=== PATIENT | female | born 1970 | race Caucasian/White ===

== ENCOUNTER 2023-08-17 10:05 | Outpatient (OUT) | payer BC, SELFPAY ==
--- NOTE | 2023-08-17 10:18 | MM_ITS ---
Patient: WEN CHANG Exam Date: 08/17/2023 : 1970 Gender:F Ordering : DR KELLI VILLA M.D. Admission #: [id number] Family : Order #: [id number] CLICK HERE TO VIEW EXAM RADIOLOGY REPORT PROCEDURE: MM TOMOSYNTHESIS SCREENING BI COMPARISON: MG MAMM DIAGNOSTIC 3D ELIU CAD, 05/23/2022. MG MAMM SCREEN 3D ELIU CAD, 05/14/2021. MG MAMM SCREEN ELIU W CAD, 11/07/2019. MG MAMM SCREEN ELIU W CAD, 03/04/2018. INDICATIONS: Screening Calculator Name NCI Breast Cancer Risk Assessment Tool 5 Year Breast Cancer Risk 4.10% Lifetime Breast Cancer Risk 28.10% Personal Breast Cancer No Personal Ovarian Cancer No Treatments None Family Cancers Mother with breast cancer at age ~50; Sister with breast cancer at age ~40; Sister with breast cancer at age ~40; Mother with lung cancer at age 61; Father with pancreas cancer at age 74; Brother with pancreas cancer at age 39; Grandfather-paternal with lung cancer at age 80; Aunt-maternal with lung cancer at age 70. LOCATION: [facility] BREAST COMPOSITION: Heterogeneously dense,which may obscure small masses. FINDINGS: DIAGNOSTIC CATEGORY 2--BENIGN FINDING: RIGHT BREAST: No significant suspicious finding. Stable right upper outer quadrant benign-appearing calcifications. No significant change has occurred. LEFT BREAST: No significant suspicious finding. No significant change has occurred. RECOMMENDATIONS: ROUTINE MAMMOGRAM AND CLINICAL EVALUATION IN 12 MONTHS. PLEASE NOTE: A NORMAL MAMMOGRAM DOES NOT EXCLUDE THE POSSIBILITY OF BREAST CANCER. A CLINICALLY SUSPICIOUS PALPABLE LUMP SHOULD BE BIOPSIED. Dictated by: Darvin Humphrey M.D. on 08/28/2023 at 14:36 Approved by: Darvin Humphrey M.D. on 08/28/2023 at 14:43
== END 2023-08-17 10:06 | disposition home or self-care (01) ==
DX: Z12.31 Encounter for screening mammogram for malignant neoplasm of breast (principal); Z80.3 Family history of malignant neoplasm of breast; Z80.1 Family history of malignant neoplasm of trachea, bronchus and lung; Z80.8 Family history of malignant neoplasm of other organs or systems
CPT/HCPCS: 77063; 77067

== ENCOUNTER 2023-09-17 19:17 | Outpatient (REF) | payer BC, SELFPAY ==
[2023-09-23 14:10] LABS: Age Gdln ACOG Testing Note (.); HPV Aptima Negative (Negative); IGP, Aptima HPV, rfx 16/18,45 Note (.)
== END 2023-09-17 19:18 | disposition home or self-care (01) ==
LOC: LAB 19:17
PROVIDERS: Visit Provider Physician Assistant
DX: Z01.419 Encounter for gynecological examination (general) (routine) without abnormal findings (principal)
CPT/HCPCS: 87624; G0145

== ENCOUNTER 2024-09-22 19:20 | Outpatient (REF) | payer BC, SELFPAY ==
--- OUTSIDE RECORDS SUMMARY | 2024-09-22 19:24 | XMS_ITS | CCD ---
Author Organization [facility] Care Team Providers Care Pipelines Supervisor Name Role Phone JOS EMARTIN HERZOG Admitting Unavailable JOSE MARTIN HERZOG Attending Unavailable JOSE MARTIN HERZOG Admitting Unavailable ROSENDA, JOSE MARTIN Attending Unavailable FRANCES GIORDANO Primary Care Unavailable DR DARVIN HUMPHREY Consulting Unavailable JOSE MARTIN HERZOG Consulting Unavailable NICHOLE MENDEZ Admitting Unavailable ANDREA, NICHOLE Attending Unavailable FRANCES GIORDANO Primary Care Unavailable ANDREA, NICHOLE Consulting Unavailable АЛЕКСАНДР HONG Attending Unavailable Problems Problem Classification Problem Date Documented Da te Episodic/Chronic Headache; including migraine (3 sources) Headache; including migraine; Translations: [HEADACHE UNSPECIFIED] Onset: 07-19-2021 Other lower respiratory disease (1 source) Cough; Translations: [COUGH] Onset: 08-04-2021 Episodic Other screening for suspected conditions (not mental disorders or infectious disease) (4 sources) Encounter for screening mammogram for malignant neoplasm of breast; Translations: [ENC SCR MAMMO MALIG NEOPLASM BREAST] Onset: 05-14-2021 Episodic Residual codes; unclassified (1 source) Family history of malignant neoplasm of breast; Translations: [FAMILY HX MALIG NEOPLASM OF BREAST] Onset: 05-23-2021 Episodic Residual codes; unclassified (1 source) Family history of malignant neoplasm of trachea, bronchus and lung; Translations: [FAM HX MALIG NEOPLSM TRACH BRON LNG] Onset: 05-23-2021 Episodic Residual codes; unclassified (1 source) Family history of malignant neoplasm of other organs or systems; Translations: [FAM HX MALIG NEOPLASM OTH ORGN/SYS] Onset: 05-23-2021 Episodic Unclassified (1 source) CONTACT W/AND (SUSP) EXPOS COVID-19; Translations: [CONTACT W/AND (SUSP) EXPOS COVID-19] Onset: 08-04-2021 Results Test Name Value Interpretation Reference Range Facil ity SCREENING MAMMOGRAM W/EDITH, BILATERAL*on 05-23-2022 SCREENING MAMMOGRAM W/EDITH, BILATERAL* COMPARISON: May 14, 2021 TECHNIQUE: 2D and 3D Tomosynthesis of the right and left breasts was performed. FINDINGS: Breast composition demonstrates scattered fibroglandular densities. Overall appearance is stable. Typically benign calcifications. No suspicious microcalcifications, asymmetry, architectural distortion, or associated features are present. IMPRESSION: BIRADS 2: Benign mammogram Board Certified Radiologist. Accredited by the ACR and FDA. MAMMOGRAPHY IS VERY IMPORTANT TO YOUR HEALTH. THE CURRENT [place] [employer] GUIDELINES RECOMMENDS ANNUAL MAMMOGRAPHY BEGINNING AT AGE 40 THIS FACILITY USES A REMINDER SYSTEM TO ENSURE ALL PATIENTS RECEIVE REMINDER NOTIFICATIONS AT THE APPROPRIATE TIME BASED ON THE RECOMMENDATIONS OF THIS EXAM. Report reported and signed by Vipul Todd on 05/29/2022 1430 Normal [facility] [employer] LIPID PANEL, STANDARDon 05-02 Cholesterol [Mass/Vol] 216 mg/dL High <200 [facility] Comment on above: Order Comment: FASTI NG: NO Performed By: #### 7 600 #### [facility] [address], [address] [place], [place] [id number] Slot Supervisor: Aly Rocha MD Cholesterol in HDL [Mass/Vol] 47 mg/dL Low > OR = 50 [facility] Comment on above: Order Comment: FASTI NG: NO Performed By: #### 7 600 #### [facility] [address], [address] [place] [id number] Slot Supervisor: Aly Rocha MD Cholesterol in LDL [Mass/Vol] 138 mg/dL High [facility] Comment on above: Order Comment: FASTI NG: NO Result Comment: Refe rence range: <100 Desirable range <100 mg/dL for primary prevention; <70 mg/dL for patients with CHD or diabetic patients with > or = 2 CHD risk factors. LDL-C is now calculated using the Lefty calculation, which is a validated novel method providing better accuracy than the Friedewald equation in the estimation of LDL-C. Pablito PONCE et al. JOSEPHINE. 2013;310(19): 7067-2898 (http://education.[employer]/faq/WCJ721) Performed By: #### 7 600 #### [facility] [address], [address] [place] [address] Slot Supervisor: Aly Rocha MD Cholesterol.total/ Cholesterol in HDL [Mass ratio] 4.6 {ratio} Normal <5.0 [facility] Comment on above: Order Comment: FASTI NG: NO Performed By: #### 7 600 #### [facility] [address], [address] [place] [address] Slot Supervisor: Aly Rocha MD NON HDL CHOLESTEROL 169 mg/dL (calc) High <130 [facility] Comment on above: Order Comment: FASTI NG: NO Result Comment: For patients with diabetes plus 1 major ASCVD risk factor, treating to a non-HDL-C goal of <100 mg/dL (LDL-C of <70 mg/dL) is considered a therapeutic option. Performed By: #### 7 600 #### [facility] [address], [address] [place] [address] Slot Supervisor: Aly Rocha MD Triglyceride [Mass/Vol] 178 mg/dL High <150 [facility] Comment on above: Order Comment: FASTI NG: NO Performed By: #### 7 600 #### [facility] [address], [address] [place] [address] Slot Supervisor: Aly Rocha MD XR Shoulder Complete Left*on 12-17-2021 XR Shoulder Complete Left* FINDINGS: A bulbous subacromial process is present. Minimal osteophyte formation involves the AC joint. No fracture or dislocation or rotator cuff calcification is seen. Upper chest is clear. IMPRESSION: 1. Minimal arthritis, no AC separation or fracture. 2. Mild upper thoracic levoscoliosis. Report reported and signed by Vipul Todd on 12/17/2021 1436 Normal [facility] Covid-19 PCR (CVDTBH)on 07-03 SARS-CoV-2 (COVID-19) RNA FAUSTO+probe Ql (Unsp spec) Not detected Normal NOT DETECTED [facility] Comment on above: Result Comment: This test is not yet approved or cleared by the [place] FDA. When there are no FDA-approved or cleared tests available, and other criteria are met, FDA can make tests available under an emergency access mechanism called an Emergency Use Authorization (EUA). The EUA for this test is supported by the [place] of Health and Human Service's (HHS's) declaration that circumstances exist to justify the emergency use of in vitro diagnostics for the detection and/or diagnosis of the virus that causes COVID-19. This EUA will remain in effect (meaning this test can be used) for the duration of the COVID-19 declaration justifying emergency of IVDs, unless it is terminated or revoked by FDA (after which the test may no longer be used). When diagnostic testing is negative, the possibility of a false negative should be considered in the context of a patient's recent exposures and the presence of clinical signs and symptoms consistent with SARS-CoV-2. Performed By: #### C VDTB #### [facility] [address] [place] [address] Dr. Brian Coronel MG MAMM SCREEN 3D ELIU CADon 05-14-2021 MG MAMM SCREEN 3D ELIU CAD Patient: WEN CHANG Exam Date: 05/14/2021 : 1970 Gender:F Ordering : DR. JOSE MARTIN HERZOG . Admission #: [id number] Family : Order #: [id number] CLICK HERE TO VIEW EXAM RADIOLOGY REPORT PROCEDURE: MAMMOGRAM SCREENING 3D BILATERAL CAD COMPARISON: MG MAMM SCREEN ELIU W CAD, 11/07/2019. MG MAMM SCREEN ELIU W CAD, 03/04/2018. INDICATIONS: Screening mammography Calculator Name NCI Breast Cancer Risk Assessment Tool 5 Year Breast Cancer Risk 3.80% Lifetime Breast Cancer Risk 28.90% Personal Breast Cancer No Personal Ovarian Cancer No Treatments None Family Cancers Mother with breast cancer at age 50; Sister with breast cancer at age 40; Sister with breast cancer at age 40; Mother with lung cancer at age 61; Father with pancreas cancer at age 74; Brother with pancreas cancer at age 39; Grandfather-paternal with lung cancer at age 80; Aunt-maternal with lung cancer at age 70. LOCATION: [facility] BREAST COMPOSITION: Heterogeneously dense,which may obscure small masses. FINDINGS: DIAGNOSTIC CATEGORY 1--NEGATIVE ASSESSMENT. RIGHT BREAST: No significant suspicious finding. No significant change has occurred. LEFT BREAST: No significant suspicious finding. No significant change has occurred. RECOMMENDATIONS: ROUTINE MAMMOGRAM AND CLINICAL EVALUATION IN 12 MONTHS. PLEASE NOTE: A NORMAL MAMMOGRAM DOES NOT EXCLUDE THE POSSIBILITY OF BREAST CANCER. A CLINICALLY SUSPICIOUS PALPABLE LUMP SHOULD BE BIOPSIED. Dictated by: Darvin Humphrey M.D. on 05/14/2021 at 15:22 Approved by: Darvin Humphrey M.D. on 05/14/2021 at 15:26 Normal [facility] Encounters Encounter Date Encounter Type Care Provider Facility Start: 09-17-2023 End: 09-17-2023 ambulatory АЛЕКСАНДР HONG Not Available Start: 07-19-2021 End: 07-19-2021 ambulatory NICHOLE BENITEZAGUSTIN Facility:[facility] Start: 05-14-2021 End: 05-15-2021 ambulatory JOSE MARTIN HERZOG Facility:[facility] Start: 12-31-2020 ambulatory JOSE MARTIN HERZOG Facility:[facility] Payers Date Payer Category Payer Unknown [id number] 1970 Unknown [id number] 1970 Unknown [id number] 1970 Unknown [id number] 1970 Unknown [id number] 1960 Self-pay [id number] 1960 Unknown [id number] Summary Purpose Family History No Family History Records FoundNo Family History Records FoundNo Family History Records FoundNo Family History Records Found Advance Directives No Advanced Directives Records FoundNo Advanced Directives Records FoundNo Advanced Directives Records FoundNo Advanced Directives Records Found Additional Source Comments INFORMATION SOURCE (unrecogn ized section and content) DATE CREATED AUTHOR 08/04/2021 [facility] DATE CREATED AUTHOR AUTHOR'S ORGANIZ ATION 05/13/2022 [facility] DATE CREATED AUTHOR AUTHOR'S ORGANIZ ATION 06/02/2022 [facility] DATE CREATED AUTHOR AUTHOR'S ORGANIZ ATION 09/19/2023 [facility] EPIC FOR RECORDS PERTAINING TO PATIENTS WHO ARE OR HAVE BEEN ENROLLED IN A CHEMICAL DEPENDENCY/SUBSTANCEABUSE PROGRAM, SOME INFORMATION MAY BE OMITTED. This clinical summary was aggregated from multiple sources. Caution should be exercised in using it in the provision of clinical care. This summary normalizes information from multiple sources, and as a consequence, information in this document may materially change the coding, format and clinical context of patient data. In addition, data may be omitted in some cases. CLINICAL DECISIONS SHOULD BE BASED ON THE PRIMARY CLINICAL RECORDS. [facility] [employer] [facility]. provides no warranty or guarantee of the accuracy or completeness of information in this document.
== END 2024-09-22 19:21 | disposition home or self-care (01) ==
LOC: LAB 19:20
PROVIDERS: Visit Provider Physician Assistant
DX: Z01.419 Encounter for gynecological examination (general) (routine) without abnormal findings (principal)
CPT/HCPCS: 87624; 88175

== ENCOUNTER 2025-03-06 10:06 | Outpatient (OUT) | payer BC, SELFPAY ==
--- NOTE | 2025-03-06 10:13 | MM_ITS ---
Patient Name: WEN CHANG MR#: [id number] : 1970 Exam Date: 03/06/2025 Ordering Doctor: NILAY HONG . RADIOLOGY REPORT PROCEDURE: MM TOMOSYNTHESIS SCREENING BI COMPARISON: MM TOMOSYNTHESIS SCREENING BI, 08/17/2023. MG MAMM DIAGNOSTIC 3D ELIU CAD, 05/23/2022. MG MAMM SCREEN 3D ELIU CAD, 05/14/2021. MG MAMM SCREEN ELIU W CAD, 03/24/2011. INDICATIONS: Screening Calculator Name NCI Breast Cancer Risk Assessment Tool 5 Year Breast Cancer Risk 4.40% Lifetime Breast Cancer Risk 27.20% Personal Breast Cancer No Personal Ovarian Cancer No Treatments None Family Cancers Mother with breast cancer at age ~50; Sister with breast cancer at age ~40; Sister with breast cancer at age ~40; Mother with lung cancer at age 61; Father with pancreas cancer at age 74; Brother with pancreas cancer at age 39; Grandfather-paternal with lung cancer at age 80; Aunt-maternal with lung cancer at age 70. LOCATION: [facility] BREAST COMPOSITION: There are scattered areas of fibroglandular density. FINDINGS: DIAGNOSTIC CATEGORY 1--NEGATIVE. RIGHT BREAST: No significant suspicious finding. LEFT BREAST: No significant suspicious finding. RECOMMENDATIONS: ROUTINE MAMMOGRAM AND CLINICAL EVALUATION IN 12 MONTHS. PLEASE NOTE: A NORMAL MAMMOGRAM DOES NOT EXCLUDE THE POSSIBILITY OF BREAST CANCER. A CLINICALLY SUSPICIOUS PALPABLE LUMP SHOULD BE BIOPSIED. Dictated by: Vipul Payan DO on 03/06/2025 at 16:33 Approved by: Vipul Payan DO on 03/06/2025 at 16:40
--- NOTE | 2025-03-06 10:14 | US_ITS ---
The [address] [address] Patient Name: WEN CHANG MRN: [id number] date: 1970 Sex: F Assigned Patient Location: US Current Patient Location: [place] Accession/Order Number: [id number] Exam Date: 03/06/2025 12:54 Report Date: 03/06/2025 12:56 At the request of: АЛЕКСАНДР HONG Procedure: US pelvis w/ transvaginal Pelvic ultrasound. Reason for exam: History of fibroid. Comparison: none Technique: Transabdominal imaging of the uterus and ovaries was performed. Transvaginal imaging of the uterus and ovaries was also obtained. Additional spectral Doppler analysis of the ovaries was also obtained. Findings: Uterus measures 11.2 x 4.2 x 7.9 cm. The uterus appears heterogenous in echotexture with a echogenic fibroid seen involving the mid uterus measuring 2.5 x 1.7 x 0.9 cm. Endometrium is not clearly seen. No free fluid. Right ovary not visualized. Left ovary measures 2.0 x 2.0 x 2.0 cm without mass. Normal arterial and venous Doppler waveforms of the left ovary. US/US pelvis w/ transvaginal Impression: Partially calcified fibroid uterus. Endometrium and right ovary not visualized. Left ovary appears unremarkable. Impression dictated by: Vipul Payan Jr., D.O. 03/06/2025 12:56 PM Dictation Location: [place] [address] Electronically authenticated by: [id number] Y Date: 03/06/2025 12:56
== END 2025-03-06 10:07 | disposition home or self-care (01) ==
LOC: US 10:07
PROVIDERS: Visit Provider Physician Assistant
DX: Z12.31 Encounter for screening mammogram for malignant neoplasm of breast (principal); Z86.018 Personal history of other benign neoplasm; Z80.3 Family history of malignant neoplasm of breast; Z80.1 Family history of malignant neoplasm of trachea, bronchus and lung; Z80.8 Family history of malignant neoplasm of other organs or systems; D25.9 Leiomyoma of uterus, unspecified
CPT/HCPCS: 76830; 76856; 77063; 77067

== ENCOUNTER 2025-10-05 19:04 | Outpatient (REF) | payer BC, SELFPAY ==
--- OUTSIDE RECORDS SUMMARY | 2025-10-05 19:09 | XMS_ITS | CCD ---
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 Name Role Phone JOSE MARTIN HERZOG Admitting Unavailable JOSE MARTIN HERZOG Attending Unavailable JOSE MARTIN HERZOG Admitting Unavailable JOSE MARTIN HERZOG Attending Unavailable FRANCES GIORDANO Primary Care Unavailable DR KAYLEE HUMPHREY Consulting Unavailable JOSE MARTIN HERZOG Consulting Unavailable NICHOLE WAITE Admitting Unavailable NICHOLE WAITE Attending Unavailable FRANCES GIORDANO Primary Care Unavailable ANDREA, NICHOLE Consulting Unavailable Isiah GRAY, Rosanne Neil Primary Care Provider Ranjit SANTANA, Lyndsay Serrano Unavailable [place] [employer]OP[employer]OFT ADMINISTRATOR-VOICE STUDIES DIRECTORRob Unavailable [phone] Forrest DONAHUE-Frances ROMO Primary Care P mahesh LILIAM WOODWARD Attending Unavailable FRANCES KAY Referring Unavail able FRANCES KAY Primary Care Unavail able CARLOS WHITFIELD Admitting Unavailable CARLOS WHITFIELD Attending Unavailable FRANCES KAY Primary Care Unavail able JAMES PERERA Referring Unavailable MAJORSJAMES Primary Care Unavailable MAJORSJAMES Referring Unavailable MAJORSJAMES Primary Care Unavailable Scooby SANTANA, Lyndsay Serrano Unavailable James Perera NP Unavailable JAMES PERERA Attending Unavailable JAMES PERERA Referring Unavailable RADHA HONG Attending Unavailable NICHOLE WAITE Attending Unavailab ROB Owen Attending Unavailable JAMES PERERA Attending Unavailable Allergies Allergy ClassificationReported Allergen(s)Allergy TypeDate of OnsetReaction(s) Facility (20 sources)Latex; Translations: [LATEX]Allergy to lmecpxdmh30-24-6678Mdlf[facility] Work Phone: (1 source)LatexPropensity to adverse reactions to nvgl30-16-3872EdqkRurSmqgto [facility] Medications Current Medications MedicationDrug Class(es)DatesSig (Normalized)Sig (Original)200 actuat albuterol 0.09 mg/actuat dry powder inhaler (1 source)beta2-Adrenergic AgonistStart: 77-72-5340cjeacxing sulfate (PROAIR RESPICLICK) 90 mcg/actuation aerosol powdr breath activated Indications: Mild intermittent reactive airway disease without complication Inhale 180 mcg every 4 (four) hours. 1 each 3 06/08/2019 Activeatorvastatin 20 mg oral tablet (12 sources)HMG-CoA Reductase InhibitorStart: 10-07-2024 End: 91-66-2958krlf 1 tablet by mouth once dailyatorvastatin (Lipitor) 20 MG tablet Indications: Mixed hyperlipidemia Take 1 tablet (20 mg) by mouth Daily 100 tablet 3 10/07/2024 10/07/2025 Activeblood pressure monitor kit (1 source)Start: 05-14-2019 End: 97-16-5248tieue pressure monitor kit Indications: Elevated blood pressure reading 1 kit by miscellaneous route daily. 1 each 05/14/2019 11/28/2024 Discontinued (Therapy completed)cyclobenzaprine hydrochloride 10 mg oral tablet (2 sources)Muscle RelaxantStart: 44-66-9134sdxk 0.5-1 tablets by mouth once daily at bedtimecyclobenzaprine (Flexeril) 10 MG tablet TAKE 1/2 TO 1 TABLET BY MOUTH EVERY NIGHT AT BEDTIME DIRECTED 08/24/2025 Activeergocalciferol 1.25 mg oral capsule (11 sources)Provitamin D2 CompoundStart: 11-26-2020 End: 46-99-7087mexq 1 capsule by mouth every weekergocalciferol (DRISDOL) 1,250 mcg (50,000 unit) capsule Take 1 capsule by mouth once a week. 11/26/2020 11/28/2024 Discontinued (Therapy completed) End: 91-73-6249niqt 1 capsule by mouth every weekergocalciferol (Vitamin D-2) 1.25 MG (26290 UT) capsule Take 1.25 mg by mouth 1 (one) time per week11/03/2025 Discontinuedfluocinonide 0.0005 mg/mg topical ointment (4 sources)CorticosteroidStart: 50-36-2872fkrnzmhnqeqg (Lidex) 0.05 % ointment Indications: Other atopic dermatitis Apply to affected areas on hands, up to twice a day when flared, do not use one the face, groin, or underarms, 30 day supply 15 g 11 08/17/2025 Activelevothyroxine sodium 0.112 mg oral tablet (20 sources)l-ThyroxineStart: 03-29-2023 End: 86-31-9235zgnn 1 tablet by mouth before mealtimelevothyroxine (Synthroid, Levoxyl) 112 MCG tablet Indications: Acquired hypothyroidism Take 1 tablet (112 mcg) by mouth in the morning. Take before meals. 100 tablet 3 10/07/2024 11/11/2025 ActiveStart: 17-68-1967mmpg 1 tablet by mouth once dailylevothyroxine (SYNTHROID, LEVOTHROID) 25 MCG tablet Indications: Acquired hypothyroidism Take 1 tablet (25 mcg total) by mouth daily. 30 tablet 1 06/08/2019 Active End: 13-63-7293wrmy 1 tablet by mouth before mealtimelevothyroxine (Synthroid, Levoxyl) 125 MCG tablet Take 125 mcg by mouth in the morning. Take beforemeals. 09/22/2024 Discontinued (Other)lisinopril 10 mg oral tablet (20 sources)Angiotensin Converting Enzyme InhibitorStart: 78-57-7148fqfu 1 tablet by mouth once dailylisinopril 10 MG tablet Indications: Essential hypertension Take 1 tablet (10 mg) by mouth Daily 90tablet 1 05/17/2025 Active Start: 02-11-2021 End: 67-40-8939edrz 1 tablet by mouth once dailylisinopril 10 MG tablet Indications: Essential hypertension (CMS/HCC) Take 1 tablet (10 mg) by mouth Daily 90 tablet 1 10/07/2024 Activemeclizine hydrochloride 25 mg oral tablet (2 sources)AntiemeticStart: 09-06-2025 End: 84-85-3536wfra 1 tablet by mouth three times daily as needed for dizziness meclizine (Antivert) 25 MG tablet Indications: Dizziness Take 1 tablet (25 mg) by mouth 3 (three) times a day as needed for dizziness for up to 10 days 30 tablet 09/06/2025 09/16/2025 ActiveMultiple Vitamin (Multi Vitamin) tablet (20 sources)Multiple Vitamin (Multi Vitamin) tablet 1 (one) time each day at the same time. ActiveMULTIVITAMIN ORAL (1 source)MULTIVITAMIN ORAL Take by mouth. Activesod sulf-pot chloride-mag sulf 1.479-0.188- 0.225 gram tablet (1 source)Start: 05-92-1057vph sulf-pot chloride-mag sulf 1.479-0.188- 0.225 gram tablet Indications: Encounter for colonoscopy due to history of colonic polyp Please see instructional sheet given by physicians office. 24 tablet 11/28/2024 Activetriamcinolone acetonide 0.25 mg/ml topical cream (20 sources)Corticosteroidtriamcinolone (Kenalog) 0.025 % cream Apply 1 application topically 1 (one) time each day at the same time. PRN Activevitamin b12 1 mg oral tablet (1 source)Vitamin D99Mbznr: 02-15-2021 End: 48-78-5105sefw 1 tablet by mouth in the morningcyanocobalamin 1000 MCG tablet Take 1 tablet (1,000 mcg total) by mouth in the morning. 02/15/2021 0 11/28/2024 Discontinued (Therapy completed) Completed/Discontinued Medications MedicationDrug Class(es)DatesSig (Normalized)Sig (Original)oxaprozin 600 mg oral tablet (2 sources)Nonsteroidal Anti-inflammatory DrugStart: 08-28-2025 End: 44-47-7523qwan 0.5 tablet by mouth three times daily as needed for pain oxaprozin (Daypro) 600 MG tablet TAKE 1/2 TABLET BY MOUTH 3 TIMES A DAY NEEDED FOR PAIN 08/28/2025 09/06/2025 Discontinued Problems Active Problems Problem ClassificationProblemDateDocumented DateEpisodic/ChronicAllergic reactions (1 source)Atopic dermatitis; Translations: [Other atopic dermatitis]08-17-2025 ChronicAsthma (20 sources)Reactive airway disease; Translations: [Unspecified asthma, uncomplicated]Onset: 840234-70-5591LvrabpxExoafe; other and unspecified primary (2 sources)History of gynecological disorder; Translations: [Personal history of other benign neoplasm]28-73-1708PldooediFskhfkw dysrhythmias (7 sources)Palpitations; Translations: [Palpitations]Onset: EpisodicConditions associated with dizziness or vertigo (2 sources)Dizziness; Translations: [Dizziness and giddiness]45-85-1965Hljauyyi Disorders of lipid metabolism (20 sources)Mixed hyperlipidemia; Translations: [Mixed hyperlipidemia]Onset: 770702-00-3012LqwbtimZgzhqelky hypertension (20 sources)Essential hypertension; Translations: [Essential (primary) hypertension]Onset: 249996-77-8793ZvryhknDtyxdupp (1 source)Raised intraocular pressure; Translations: [Ocular hypertension, unspecified eye]01-22-5537XqxhnfuEwutyqpd; including migraine (3 sources)Headache; including migraine; Translations: [HEADACHE UNSPECIFIED] Onset: 91-59-4018Kkwxjjagr of unspecified nature or uncertain behavior (3 sources)Neoplastic disease; Translations: [Neoplasm of unspecified behavior of bone, soft tissue, and skin]56-10-9590JexkqshiCpdecltyryf chest pain (5 sources)Tight chest; Translations: [Other chest pain]Onset: 06-29-2025 92-77-1674YdovnxeqQefjmgivofbadk (20 sources)Localized, primary osteoarthritis of the ankle and/or foot; Translations: [Primary osteoarthritis, unspecified ankle and foot]Onset: 434816-16-2971JjbhyxfSquxk acquired deformities (20 sources)Contracture of joint of right ankle; Translations: [Contracture, right ankle]Onset: 869591-81-5411JhjsoppMoqop and unspecified benign neoplasm (3 sources)Melanocytic nevus of right lower limb; Translations: [Melanocytic nevi of right lower limb, including hip]57-87-2995ZiejqwdnPqmmt and unspecified benign neoplasm (3 sources)Melanocytic nevus of left lower limb; Translations: [Melanocytic nevi of left lower limb, includinghip]61-84-6124WuqoylasBqhpz and unspecified benign neoplasm (3 sources)Melanocytic nevus of trunk; Translations: [Melanocytic nevi of trunk] 46-64-8394YzcgemyrWcfat and unspecified benign neoplasm (3 sources)Skin lesion; Translations: [Hemangioma of skin and subcutaneous tissue]98-39-3261YcjdhxpeYpuhn and unspecified benign neoplasm (3 sources)Dermatofibroma; Translations: [Other benign neoplasm of skin, unspecified]50-01-2537CildkecaBhfpc lower respiratory disease (1 source)Cough; Translations: [COUGH]Onset: 16-49-8811MgnubxfnOkdht nervous system disorders (20 sources)Chronic pain; Translations: [Other chronic pain]Onset: 02-17-2022 84-91-7322MbgerntJxrvv nutritional; endocrine; and metabolic disorders (20 sources)Obese class I; Translations: [Class 1 obesity]Onset: 02-14-2021 13-71-5384CdzwvvqOtmuk nutritional; endocrine; and metabolic disorders (1 source)Obesity; Translations: [Obesity, unspecified]94-49-4667SkankrpRgwox skin disorders (3 sources)Lentiginosis; Translations: [Other melanin hyperpigmentation] 10-08-2055HzwxhceeJytic skin disorders (3 sources)Seborrheic keratosis; Translations: [Other seborrheic keratosis] 99-09-5405XphszpquEprmj skin disorders (1 source)Sebaceous gland hypertrophy; Translations: [Other specified follicular disorders]09-15-9913TyjysrciCsdvd skin disorders (1 source)Skin tag; Translations: [Other hypertrophic disorders of the skin] 14-74-6095HaifbokqHbjaffiq codes; unclassified (1 source)Family history of malignant neoplasm of breast; Translations: [FAMILY HX MALIG NEOPLASM OF BREAST]Onset: 53-91-5549VhcibceaVntoshrt codes; unclassified (1 source)Family history of malignant neoplasm of trachea, bronchus and lung; Translations: [FAM HX MALIG NEOPLSM TRACH BRON LNG]Onset: 13-82-4623Vlitxisw Residual codes; unclassified (1 source)Family history of malignant neoplasm of other organs or systems; Translations: [FAM HX MALIG NEOPLASM OTH ORGN/SYS]Onset: 72-73-9690Ilzwawsa Thyroid disorders (20 sources)Acquired hypothyroidism; Translations: [Hypothyroidism, unspecified] Onset: 595291-96-3668ZulrppxBcpukbtcntjg (1 source)CONTACT W/AND (SUSP) EXPOS COVID-19; Translations: [CONTACT W/AND (SUSP) EXPOS COVID-19]Onset: 92-79-7209Fvwzbnmjsmak (2 sources)Personal history of colon polyps, unspecified; Translations: [Personal history of colon polyps, unspecified]Onset: 64-86-3812Fppuskgzfdmy (1 source)Colon Cancer ScreeningOnset: 93-24-8757Hxfzkvbrsevu (1 source)history of colonpolypsOnset: 12-16-2024 Past or Other Problems Problem ClassificationProblemDateDocumented DateEpisodic/ChronicCancer; other and unspecified primary (20 sources)H/O: skin disorder; Translations: [Personal history of other benign neoplasm]Onset: 493401-95-0668IbvukbdsUsyonpaq mellitus without complication (20 sources)Hyperglycemia; Translations: [Impaired fasting glucose]Onset: 702196-14-9830XxusoinqKibl disorders (1 source)Mood disordersOnset: Other circulatory disease (20 sources)Elevated blood pressure; Translations: [Elevated blood-pressure reading, without diagnosis of hypertension]Onset: 309675-12-7074Oroaridk Other connective tissue disease (20 sources)Calcaneal spur of right foot; Translations: [Calcaneal spur, right foot]Onset: 114636-70-8019UxonioayMoynn connective tissue disease (20 sources)Plantar fascial fibromatosis; Translations: [Plantar fascial fibromatosis]Onset: 274560-93-6757QwgdiltfJqxhv screening for suspected conditions (not mental disorders or infectious disease) (20 sources)Encounter for screening mammogram for malignant neoplasm of breast; Translations: [Decreased vitamin B12 level]Onset: 00-88-4265QivohottNaptnxmmonoy (1 source)Onset: Results Test NameValueInterpretationReference RangeFacilityLesion biopsyon 08-17-2025 Type of biopsy: tangential Informed consent: discussed and consent obtained Informed consent comment: The risks and benefits of the biopsy were discussed. Risks include but are not limited to bleeding, infection, scarring, pain, and nerve damage. An opportunity to ask questions prior to the procedure was permitted and all questions were answered. Patient was prepped and draped in usual sterile fashion: area cleansed with alcohol. Anesthesia: the lesion was anesthetized in a standard fashion Anesthetic: 1% lidocaine w/ epinephrine 1-100,000 buffered w/ 8.4% NaHCO3 Instrument used: DermaBlade Hemostasis achieved with: electrodesiccation Outcome: patient tolerated procedure well Outcome comment: The specimen was placed in a prelabeled formalin container to be sent for pathology Post-procedure details: sterile dressing applied and wound care instructions given Post-procedure details comment: Emphasized need to contact clinic for any signs of infection, uncontrollable bleeding, or complications. Dressing type: bandage Additional details: Photo taken Am[facility] of lidocaine [facility]: [facility].0 [facility] 2 VIEWSon 63-77-9376DC CHEST 2 VIEWSChest 2 views. HISTORY: Chest pain. Chest tightness. FINDINGS: Osseous structures intact. Cardiopericardial silhouette normal. Pulmonary vasculature normal. Lungsclear. IMPRESSION: No acute cardiopulmonary disease. ELECTRONICALLY SIGNED BY: Leatha DudleyNot AvailableMM TOMOSYNTHESIS SCREENING BIon 85-22-4234[place] [address] Mammography Report Signed Patient: WEN MURILLO MR#: [id number] : 1970 Acct:[id number] Age/Sex: 54 / F ADM Date: 03/06/25 Loc: US Attending Dr: Radha Hong Ordering Physician: Radha Hong Results: Date of Service: 03/06/25 Follow Up: Procedure(s): MM tomosynthesis screening BI Accession Number(s): [id number] cc: Radha Hong; Physician,Non-Staff M.D. Patient Name: WEN MURILLO MR#: [id number] : 1970 Exam Date: 03/06/2025 Ordering Doctor: NILAY HONG . RADIOLOGY REPORT PROCEDURE: MM TOMOSYNTHESIS SCREENING BI COMPARISON: MM TOMOSYNTHESIS SCREENING BI, 08/17/2023. MG MAMM DIAGNOSTIC 3D ELIU CAD, 05/23/2022. MG MAMM SCREEN 3D ELIU CAD, 05/14/2021. MG MAMM SCREEN ELIU W CAD, 03/24/2011. INDICATIONS: Screening Calculator Name NCI Breast Cancer Risk Assessment Tool 5 Year Breast Cancer Risk 4.40% Lifetime Breast Cancer Risk 27.20% Personal Breast Cancer No Personal Ovarian Cancer [...] lung cancer at age 69. LOCATION: [facility] BREAST COMPOSITION: There are scattered areas of fibroglandular density. FINDINGS: DIAGNOSTIC CATEGORY 1--NEGATIVE. RIGHT BREAST: No significant suspicious finding. LEFT BREAST: No significant suspicious finding. RECOMMENDATIONS: ROUTINE MAMMOGRAM AND CLINICAL EVALUATION IN 12 MONTHS. PLEASE NOTE: A NORMAL MAMMOGRAM DOES NOT EXCLUDE THE POSSIBILITY OF BREAST CANCER. A CLINICALLY SUSPICIOUS PALPABLE LUMP SHOULD BE BIOPSIED. Dictated by: Vipul Payan DO on 03/06/2025 at 16:33 Approved by: Vipul Payan DO on 03/06/2025 at 16:40 Dictated By: Vipul Payan M.D. Signed By: 03/06/25 1641 DD/ 1640 TD/TT: Enterostomal Therapy Nurse:TBHRadiology, Radiologist, - 03/06/2025 [place] [address] Mammography Report Signed Patient: WEN MURILLO MR#: [id number] : 1970 Acct:[id number] Age/Sex: 54 / F ADM Date: 03/06/25 Loc: US Attending Dr: Radha Hong Ordering Physician: Radha Hong Results: Date of Service: 03/06/25 Follow Up: Procedure(s): MM tomosynthesis screening BI Accession Number(s): [id number] cc: Radha Hong; Physician,Non-Staff M.DBunny Patient Name: WEN MURILLO MR#: [id number] : 1970 Exam Date: 03/06/2025 Ordering Doctor: NILAY HONG . RADIOLOGY REPORT PROCEDURE: MM TOMOSYNTHESIS SCREENING BI COMPARISON: MM TOMOSYNTHESIS SCREENING BI, 08/17/2023. MG MAMM DIAGNOSTIC 3D ELIU CAD, 05/23/2022. MG MAMM SCREEN 3D ELIU CAD, 05/14/2021. MG MAMM SCREEN ELIU W CAD, 03/24/2011. INDICATIONS: Screening Calculator Name NCI Breast Cancer Risk Assessment Tool 5 Year Breast Cancer Risk 4.40% Lifetime Breast Cancer Risk 27.20% Personal Breast Cancer No Personal Ovarian Cancer [...] lung cancer at age 69. LOCATION: [facility] BREAST COMPOSITION: There are scattered areas of fibroglandular density. FINDINGS: DIAGNOSTIC CATEGORY 1--NEGATIVE. RIGHT BREAST: No significant suspicious finding. LEFT BREAST: No significant suspicious finding. RECOMMENDATIONS: ROUTINE MAMMOGRAM AND CLINICAL EVALUATION IN 12 MONTHS. PLEASE NOTE: A NORMAL MAMMOGRAM DOES NOT EXCLUDE THE POSSIBILITY OF BREAST CANCER. A CLINICALLY SUSPICIOUS PALPABLE LUMP SHOULD BE BIOPSIED. Dictated by: Vipul Payan DO on 03/06/2025 at 16:33 Approved by: Vipul Payan DO on 03/06/2025 at 16:40 Dictated By: Vipul Payan M.D. Signed By: 03/06/25 1641 DD/ 1640 TD/TT: Enterostomal Therapy Nurse: [place] HealthcareRadiology Study observation (narrative)[facility] TOMOSYNTHESIS SCREENING BIOrdered By: Radiologist Radiology on 71-17-2474WMHR [employer] Work Phone: us PELVIS W/ TRANSVAGINALon 18-85-6014Tas [place] [address] Ultrasound Report Signed Patient: WEN MURILLO MR#: [id number] : 1970 Acct:[id number] Age/Sex: 54 / F ADM Date: 03/06/25 Loc: US Attending Dr: Radha Hong Ordering Physician: Radha Hong Date of Service: 03/06/25 Procedure(s): US pelvis w/ transvaginal Accession Number(s): [id number] cc: Radha Hong; Physician,Non-Staff [facility] [address] [address] Patient Name: WEN MURILLO MRN: [facility]:[id number] date: 1970 Sex: F Assigned Patient Location: US Current Patient Location: US Accession/Order Number: [id number] Exam Date: 03/06/2025 12:54 Report Date: 03/06/2025 12:56 At the request of: RADHA HONG Procedure: US pelvis w/ transvaginal Pelvic ultrasound. Reason for exam: History of fibroid. Comparison: none Technique: Transabdominal imaging of the uterus and ovaries was performed. Transvaginal imaging of the uterus and ovaries was also obtained. Additional spectral Doppler analysis of the ovaries was also obtained. Findings: Uterus measures 11.2 x 4.2 x 7.9 cm. The uterus appears heterogenous in echotexture with a echogenic fibroid seen involving the mid uterus measuring 2.5 x 1.7 x 0.9 cm. Endometrium is not clearly seen. No free fluid. Right ovary not visualized. Left ovary measures 2.0 x 2.0 x 2.0 cm without mass. Normal arterial and venous Doppler waveforms of the left ovary. US/US pelvis w/ transvaginal Impression: Partially calcified fibroid uterus. Endometrium and right ovary not visualized. Left ovary appears unremarkable. Impression dictated by: Vipul Payan Jr., D.O. 03/06/2025 12:56 PM Dictation Location: [place] [address] Electronically authenticated by: [id number] Y Date: 03/06/2025 12:56 Dictated By: Vipul Payan M.D. Signed By: 03/06/25 1258 DD/ 1256 TD/TT: Enterostomal Therapy Nurse:JULISAadiology, Radiologist, - 03/06/2025 The [place] [id number] Ultrasound Report Signed Patient: WEN MURILLO MR#: [id number] : 1970 Acct:[id number] Age/Sex: 54 / F ADM Date: 03/06/25 Loc: US Attending Dr: Radha Hong Ordering Physician: Radha Hong Date of Service: 03/06/25 Procedure(s): US pelvis w/ transvaginal Accession Number(s): [id number] cc: Radha Hong; Physician,Non-Staff M.D. [place] [address] Patient Name: WEN MURILLO MRN: [facility]:[id number] date: 1970 Sex: F Assigned Patient Location: US Current Patient Location: US Accession/Order Number: [id number] Exam Date: 03/06/2025 12:54 Report Date: 03/06/2025 12:56 At the request of: RADHA HONG Procedure: US pelvis w/ transvaginal Pelvic ultrasound. Reason for exam: History of fibroid. Comparison: none Technique: Transabdominal imaging of the uterus and ovaries was performed. Transvaginal imaging of the uterus and ovaries was also obtained. Additional spectral Doppler analysis of the ovaries was also obtained. Findings: Uterus measures 11.2 x 4.2 x 7.9 cm. The uterus appears heterogenous in echotexture with a echogenic fibroid seen involving the mid uterus measuring 2.5 x 1.7 x 0.9 cm. Endometrium is not clearly seen. No free fluid. Right ovary not visualized. Left ovary measures 2.0 x 2.0 x 2.0 cm without mass. Normal arterial and venous Doppler waveforms of the left ovary. US/US pelvis w/ transvaginal Impression: Partially calcified fibroid uterus. Endometrium and right ovary not visualized. Left ovary appears unremarkable. Impression dictated by: Vipul Payan Jr., D.O. 03/06/2025 12:56 PM Dictation Location: [place] [address] Electronically authenticated by: [id number] Y Date: 03/06/2025 12:56 Dictated By: Vipul Payan M.D. Signed By: 03/06/25 1258 DD/ 1256 TD/TT: Enterostomal Therapy Nurse: [facility]ITALMarika HealthcareRadiology Study observation (narrative)NOMMarika HealthcareUS PELVIS W/ TRANSVAGINALOrdered By: Radiologist Radiology on 11-00-7030VMWX Healthcare Work Phone: IGP,APTIMA HPV,AGE GDLNon 15-46-2945VPT GDLN ACOG TESTINGNote.[facility] HealthcareComment on above:TESTS RESULT FLAG UNITS REF RANGE LAB Clinician Provided Cytology Information Source.............Cervix;Endocervix No. of containers..01 ThinPrep Vial Age Algo ACOG Christine... 30-65 01 FLAG LEGEND: L-Low Normal,H-High Normal,LL-Alert Low,HH-Alert High <-Panic Low,>-Panic High,A-Abnormal,AA-Critical Abnormal Performed at: 01 =G [address] [address] Ashlie Sparrow MD, HPV APTIMANegativeNegativeJORDAN VALLEY MEDICAL CENTER HealthcareComment on above:This nucleic acid amplification test detects fourteen high- risk HPV types (16,18,31,33,35,39,45,51,52,56,58,59,66,68) without differentiation. Performed at: =G [address] [id number] Manager Agency: Ashlie Sparrow MD, Phone: [phone] Performed at: - [facility], [place] [id number] Manager Agency: Ashlie Sparrow MD, Phone: [phone] IGP, APTIMA HPV, RFX 16/18,45Note.[facility]OMS HealthcareComment on above:TESTS RESULT FLAG UNITS REF RANGE LAB DIAGNOSIS: 02 NEGATIVE FOR INTRAEPITHELIAL LESION OR MALIGNANCY. Specimen adequacy: 02 Satisfactory for evaluation. No endocervical component is identified. Performed by: Star Pfeiffer, Fence Installer (ASC) . 02 Note: Note 02 The Pap smear is a screening test designed to aid in the detection of premalignant and malignant conditions of the uterine cervix. It is not a diagnostic procedure and should not be used as the sole means of detecting cervical cancer. Both false-positive and false-negative reports do occur. Test Methodology: Note 02 This liquid based ThinPrep(R) pap test was screened with the use of an image guided system. HPV Genotype Reflex Note 02 Criteria not met, HPV Genotype not performed. FLAG LEGEND: L-Low Normal,H-High Normal,LL-Alert Low,HH-Alert High <-Panic Low,>-Panic High,A-Abnormal,AA-Critical Abnormal Performed at: [address] [facility] [address] [place] [address] Ashlie Sparrow MD, BRUSH-SPATULA CERVIX ENDOCERVIX [facility] Panel Informationon 04-90-6547Rgtz of biopsy: tangential Informed consent: discussed and consent obtained Informed consent comment: The risks and benefits of the biopsy were discussed. Risks include but are not limited to bleeding, infection, scarring, pain, and nerve damage. An opportunity to ask questions prior to the procedure was permitted and all questions were answered. Patient was prepped and draped in usual sterile fashion: area cleansed with alcohol. Anesthesia: the lesion was anesthetized in a standard fashion Anesthetic: 1% lidocaine w/ epinephrine 1-100,000 buffered w/ 8.4% NaHCO3 Instrument used: DermaBlade Hemostasis achieved with: electrodesiccation Outcome: patient tolerated procedure well Outcome comment: The specimen was placed in a prelabeled formalin container to be sent for pathology Post-procedure details: sterile dressing applied and wound care instructions given Post-procedure details comment: Emphasized need to contact clinic for any signs of infection, uncontrollable bleeding, or complications. Dressing type: bandage Additional details: Photo taken yes Amount of lidocaine used: 0.5 [facility]ENING MAMMO[facility] W/EDITH, BILATERAL*on 72-29-9103QGYDDQFPU MAMMOGRAM W/EDITH, BILATERAL* COMPARISON: May 14, 2021 [...] VERY IMPORTANT TO YOUR HEALTH. THE CURRENT [employer] GUIDELINES RECOMMENDS ANNUAL MAMMOGRAPHY BEGINNING AT AGE 40 THIS FACILITY USES A REMINDER SYSTEM TO ENSURE ALL PATIENTS RECEIVE REMINDER NOTIFICATIONS AT THE APPROPRIATE TIME BASED ON THE RECOMMENDATIONS OF THIS EXAM. Report reported and signed by Vipul Todd on 05/29/2022 1430NormalNorthern Virginia Medical SpecialistLIPID PANEL, STANDARDon 61-20-1109Aeamlznxnlb [Mass/Vol] 216 mg/dLHigh<200Quest DiagnosticsComment on above:Order Comment: FASTING: NO Performed By: #### [id number] #### [facility] [address], [address] [place] [address] Sales Agent Casualty Insurance: Aly BABCOCKholesterol in HDL [Mass/Vol]47 mg/dLLow> OR = 50Quest DiagnosticsComment on above:Order Comment: FASTING: NOPerformed By: #### 7600 #### [facility] [address], [address] [place] [address] Sales Agent Casualty Insurance: Aly Rocha MDCholesterol in LDL [Mass/Vol]138 mg/dLHigh [facility] DiagnosticsComment on above:Order Comment: FASTING: NOResult Comment: Reference range: <100 Desirable range <100 mg/dL for primary prevention; <70 mg/dL for patients with CHD or diabetic patients with > or = 2 CHD risk factors. LDL-C is now calculated using the Lefty calculation, which is a validated novel method providing better accuracy than the Friedewald equation in the estimation of LDL-C. Pablito SS et al. JOSEPHINE. 2013;310(19): 3911-4039 (http://education.[employer].HelpingDoc/faq/BYE562)Performed By: #### 7600 #### [facility] [address], [address] [place] [address] Sales Agent Casualty Insurance: Aly Coronel.total/Cholesterol in HDL [Mass ratio]4.6 {ratio}Normal<5.0Quest DiagnosticsComment on above:Order Comment: FASTING: NOPerformed By: #### 7600 #### [facility] [address], [address] [place] [address] Sales Agent Casualty Insurance: Aly BELCHER HDL [id number] mg/dL (calc)High<130 Quest DiagnosticsComment on above:Order Comment: FASTING: NOResult Comment: For patients with diabetes plus 1 major ASCVD risk factor, treating to a non-HDL-C goal of <100 mg/dL (LDL-C of <70 mg/dL) is considered a therapeutic option.Performed By: #### 7600 #### [facility] [address], [address] [place] [address] Sales Agent Casualty Insurance: Aly Merati MDTriglyceride [Mass/Vol]178 mg/dLHigh<150Quest DiagnosticsComment on above:Order Comment: FASTING: NOPerformed By: #### 7600 #### [facility] [address] [place] [address] Rd, [address] [place] [address] Sales Agent Casualty Insurance: Aly Rocha MDXR Shoulder Complete Left*on [phone] Shoulder Complete Left*FINDINGS: A bulbous subacromial process is present. Minimal osteophyte formation involves the AC joint. No fracture or dislocation or rotator cuff calcification is seen. Upper chest is clear. IMPRESSION: 1. Minimal arthritis, no AC separation or fracture. 2. Mild upper thoracic levoscoliosis. Report reported and signed by Vipul Todd on 12/17/2021 1436NormalNorthern Saint Francis Hospital & Medical CenterCovid-19 PCR (CVDTB)on 40-21-7472TZMY-CoV-2 (COVID-19) RNA FAUSTO+probe Ql (Unsp spec)Not detectedNormalNOT DETECTEDThe [facility] Comment on above:Result Comment: This test is not yet approved or cleared by the [place] FDA. When there are no FDA-approved or cleared tests available, and other criteria are met, FDA can make tests available under an emergency access mechanism called an Emergency Use Authorization (EUA). The EUA for this test is supported by the [place] of Health and Human Service's (HHS's) declaration that circumstances exist to justify the emergency use of in vitro diagnostics for the detection and/or diagnosis of the virus that causes COVID- 19. This EUA will remain in effect (meaning [...] of clinical signs and symptoms consistent with SARS-CoV-2.Performed By: #### CVDTBH #### [facility] [address] [address] [address] Brian CoronelMG MAMM SCREEN 3D ELIU CADon 70-58-3677UL MAMM SCREEN 3D ELIU CAD Patient: WEN MURILLO Exam Date: 05/14/2021 : 1970 Gender:F Ordering : DR. JOSE MARTIN HERZOG . Admission #: [id number] Family : Order #: [id number] CLICK HERE TO VIEW EXAM RADIOLOGY REPORT [...] lung cancer at age 69. LOCATION: [facility] BREAST COMPOSITION: Heterogeneously dense,which may obscure [...] PALPABLE LUMP SHOULD BE BIOPSIED. Dictated by: Kaylee Humphrey M.D. on 05/14/2021 at 15:22 Approved by: Kaylee Humphrey M.D. on 05/14/2021 at 15:26[facility] Vital Signs Date TimeVital SignValuePerforming FzlmsannzJtitwsnr82-99-0284 15:09-0500 Diastolic blood cxorxvhb63 mm[Hg]James Perera MANAGER AGENCY Work Phone: ePARHermann Area District HospitalXasfngwnzk79-83-7101 15:09-0500Heart rate94 /min James Perera MANAGER AGENCY Work Phone: ePARHermann Area District HospitalGevwxqrnwl30-91-5676 15:09-3585ZeI9% (BldA) [Mass fraction]97 %James Perera MANAGER AGENCY Work Phone: [facility] HospitalEzgdghrxag48-68-8351 15:09-0500Systolic blood scuycuei071 mm[Hg]James Majors MANAGER AGENCY Work Phone: [phone] HospitalAyzxbkdcog15-45-2299 14:39-0500Body mass index (BMI) [Ratio]33.16 kg/d3Nmohup Majors MANAGER AGENCY Work Phone: [facility] HospitalWwcxpntetw43-38-1457 14:39-0500Body temperature 97.59 [degF]James Majors MANAGER AGENCY Work Phone: [phone] [place], [place] [address]Pdppncnjst22-58-1725 14:39-0500Body .33 kgBreann Majors MANAGER AGENCY Work Phone: [phone] HospitalNoufhbbgiq85-27-9858 14:00-0400Body mass index (BMI) [Ratio]32.75 kg/o3Teheju Majors MANAGER AGENCY Work Phone: [phone] HospitalKniyxhmmyy23-05-4132 14:00-0400Body temperature 97.2 [degF]James Majors MANAGER AGENCY Work Phone: [phone] [place], [place] [address]Ctwfxtpuir99-48-0087 14:00-0400Body zlmlow550.06 kgBrealton Majors MANAGER AGENCY Work Phone: [phone] HospitalKewmqjpniz08-86-3477 14:00-0400Diastolic blood qsmiiopl96 mm[Hg]James Majors MANAGER AGENCY Work Phone: [phone] [address]Liualhwahl86-56-3544 14:00-0400Heart rate86 /min James Majors MANAGER AGENCY Work Phone: [phone] [place], [place] [address]Mvgwyiqylp33-54-6314 14:00-1700IqE1% (BldA) [Mass fraction]97 %James Majors MANAGER AGENCY Work Phone: [phone] HospitalYtroxuksjh77-36-1970 14:00-0400Systolic blood oxdvdigm785 mm[Hg]James Majors MANAGER AGENCY Work Phone: [facility] HospitalIfklbgjaco15-85-7832 09:00-0500Body mass index (BMI) [Ratio]31.64 kg/b9RndbspvLiliam ALLREDVOICE STUDIES DIRECTOR Work Phone: [facility]01-27-2025 09:00-0500Body .61 kgLiliam Woodward PEOPLESOFT ADMINISTRATOR-VOICE STUDIES DIRECTOR Work Phone: [facility]01-27-2025 09:00-0500Diastolic blood atqzszet30 mm[Hg]Liliam Woodward PEOPLESOFT ADMINISTRATOR-VOICE STUDIES DIRECTOR Work Phone: [facility]01-27-2025 09:00-0500Heart rate 80 /minLiliam Woodward PEOPLESOFT ADMINISTRATOR-VOICE STUDIES DIRECTOR Work Phone: [facility]01-27-2025 09:00-0500Systolic blood uqtbbejq477 mm[Hg]Liliam Woodward PEOPLESOFT ADMINISTRATOR-VOICE STUDIES DIRECTOR Work Phone: [facility]12-05-2024 11:35-0500Body .5 Jayeshatricia Andrea MANAGER AGENCY Work Phone: [facility] HospitalXnygltlfos76-09-1812 11:35-0500Body mass index (BMI) [Ratio]30.83 kg/l5Fscaoagw Riccardoyazminburg MANAGER AGENCY Work Phone: [facility] HospitalYtycpnmtat52-62-6567 11:35-0500Body eawvpj66.07 kgPahailyia [place] MANAGER AGENCY Work Phone: [facility] HospitalArrzehbtoy20-34-8621 11:35-0500Diastolic blood atajvfxm47 mm[Hg]Nichole Andrea MANAGER AGENCY Work Phone: [facility] HospitalTcpmqyznzp96-71-7017 11:35-0500Heart rate74 /min Nichole Andrea MANAGER AGENCY Work Phone: [address] [address]Szelckfdmk91-40-6425 11:35-0500Systolic blood yhenwwab571 mm[Hg]Nichole Hayazminburg MANAGER AGENCY Work Phone: [address] [address]Pvjhmvjxvn69-48-0730 14:27-0500Body mass index (BMI) [Ratio]32.35 kg/m2Radha PEMBERTON Work Phone: [address] [address]Bygrngdkys40-26-6140 14:27-0500Body .4 kg Radha PEMBERTON Work Phone: NOHermann Area District HospitalJaaseifcmw71-18-2990 14:-0500Diastolic blood dxaknama86 mm[Hg]Radha PEMBERTON Work Phone: noHermann Area District HospitalYujpygjreu72-88-2526 14:27-0500Systolic blood curwswvb174 mm[Hg]Radha PEMBERTON Work Phone: [facility] Encounters Encounter DateEncounter TypeCare ProviderFacilityStart: 09-06-2025 End: 24-72-6596naaixxzpuwPGVDTX MAJORSNot AvailableStart: 09-06-2025 End: 40-15-9567Rgxeig outpatient visit 25 minutesJames Perera MANAGER AGENCY Work Phone: [facility] MedicineComment on above:Dizziness (Primary Dx)Start: 09-06-2025 End: 44-58-1601Jsakgn [facility], avoninezB[facility] MANAGER AGENCY Work Phone: [facility] MedicineStart: 09-06-2025 End: 77-89-3400Ptgkup flowsGadsden Community Hospital MANAGER AGENCY Work Phone: [facility] MedicineStart: 08-17-2025 End: 56-54-3273Wxlput flowsheetNatalie A Felter PEOPLESOFT ADMINISTRATOR-VOICE STUDIES DIRECTOR Work Phone: no[facility] DermatologyStart: 08-17-2025 End: 42-11-4060Xknftp flowsheetNatalie A Felter PEOPLESOFT ADMINISTRATOR-VOICE STUDIES DIRECTOR Work Phone: no[facility] DermatologyStart: 08-17-2025 End: 51-46-5409mdceqmxulnFAFFSZW A FELTERNot AvailableStart: 08-17-2025 End: 18-99-6360Lriypm outpatient visit 25 minutesNatalie A Felter PEOPLESOFT ADMINISTRATOR-VOICE STUDIES DIRECTOR Work Phone: noSan [facility] DermatologyComment on above:Melanocytic nevus of trunk (Primary Dx); Melanocytic nevus of right lower extremity; Melanocytic nevus of left lower extremity; Lentigines; Angioma of skin; Seborrheic keratosis; Dermatofibroma; Other atopic dermatitis; Sebaceous hyperplasia; Skin tag; History of nevus excision; Neoplasm of unspecified behavior of bone, soft tissue, and skinStart: 06-29-2025 End: 36-71-5090bvnwwjrxppSQCCQGC.S. Mott Children's Hospitaltart: 06-28-2025 End: 62-16-0411[facility] MANAGER AGENCY Work Phone: NOQN [facility] Centertart: 06-28-2025 End: 47-44-8576HhbdeuSt. Charles Medical [facility] MANAGER AGENCY Work Phone: NOAA [facility] Trauma Centertart: 06-28-2025 End: 06-17-5542Hbjimr outpatient visit 25 minutesBanner Cardon [facility] MANAGER AGENCY Work Phone: N[facility] MedicineComment on above:Heart palpitations (Primary Dx); Chest tightness; Acquired hypothyroidismStart: 06-28-2025 End: 20-40-1396toqxdeorhkTBCJKB MAJORSNot AvailableStart: 03-06-2025 End: 78-17-7645Durpurvyl Result EncounterRadha PEMBERTON Work Phone: noms External Department UnsolicitedStart: 03-06-2025 End: 61-31-1395Fbthpttoe Result EncounterRadha PEMBERTON Work Phone: noms External Department UnsolicitedStart: 12-16-2024 End: 10-77-9850Sppclfwhmq and management of inpatientCommunity Health Systemstart: 11-28-2024 End: 20-17-1705Elgfmk outpatient new 30 minutesLiliam Woodward APRN-VOICE STUDIES DIRECTOR Work Phone: [facility] General SurgeryComment on above: Encounter for colonoscopy due to history of colonic polyp (Primary Dx)Start: 11-28-2024 End: 80-76-0920cqyharzhslNRVXMJZ A CARROLLWexner Medical Centerdipak [facility] Start: 10-07-2024 End: 39-86-9553Xuvzmi Facundo Joyce MD Work Phone: noms FNR FMComment on above:Acquired hypothyroidism (CMS/HCC) (Primary Dx); Mixed hyperlipidemia (CMS/HCC)Essential hypertension (CMS/HCC)Start: 10-06-2024 End: 61-68-0559Rkjqfom encounter statusQamarkevin Putnamnuzhat MANAGER AGENCY Work Phone: noms HealthcareStart: 10-06-2024 End: 27-72-1463Ghiwsyne preventive med est patient 40-64yrsPatricia Zach Bowserjulita MANAGER AGENCY Work Phone: noms FNR FMComment on above:Heart palpitations (Primary Dx); Essential hypertension (CMS/HCC); Mixed hyperlipidemia (CMS/HCC); Acquired hypothyroidism (CMS/HCC); Encounter for wellness examination in adult; Screening for diabetes mellitus; Thyroid nodule (CMS/HCC); Class 1 obesity; Elevated fasting blood sugarStart: 10-06-2024 End: 10-03-5006anomuxaizcUFYFNHUF A HACKENBURGNot AvailableStart: 09-22-2024 End: 60-89-7551Iltfcd flowsShelia PEMBERTON Work Phone: noms BCP OBStart: 09-22-2024 End: 45-54-1672Owxlyk flowsShelia PEMBERTON Work Phone: noms BCP OBStart: 09-22-2024 End: 16-21-5720Pywwuzywa Result EncounterRadha PEMBERTON Work Phone: noms External Department UnsolicitedStart: 09-22-2024 End: 27-14-4183Lcqdbew encounter Tyra PEMBERTON Work Phone: [facility] Work Phone: Start: 09-22-2024 End: 94-70-2093Wmckmljf preventive med est patient 40-64yrsAmy Diomedes PEMBERTON Work Phone: noms BCP OBComment on above:Well woman exam with routine gynecological exam; Breast cancer screening by mammogram; History of uterine fibroidStart: 09-22-2024 End: 08-25-9424wpmoapqfxhUGA RAMEYNot AvailableStart: 06-30-2024 End: 28-48-2219Afdbnf flowsheetNatalie A Felter PEOPLESOFT ADMINISTRATOR-VOICE STUDIES DIRECTOR Work Phone: noms SWS DERMStart: 06-30-2024 End: 67-57-1935Whwnhf flowsheetNatalie A Felter PEOPLESOFT ADMINISTRATOR-VOICE STUDIES DIRECTOR Work Phone: [facility] DERMStart: 06-30-2024 End: 77-42-3742Qqxjps outpatient visit 15 minutesNatalie A Felter PEOPLESOFT ADMINISTRATOR-VOICE STUDIES DIRECTOR Work Phone: noms [facility] DERMComment on above:Lentigines; Seborrheic keratosis; Melanocytic nevus of right lower extremity; Melanocytic nevus of left lower extremity; Melanocytic nevus of trunk; Angioma of skin; Dermatofibroma; Neoplasm of unspecified behavior of bone, soft tissue, and skinStart: 07-19-2021 End: 75-72-0647qibqroijzuCXKNTXEW ANDREAFacility:F9Hobyq: 05-14-2021 End: 47-40-4980qtzcvuxouaDDCIES ROSENDAFacility:N4Rjccw: 41-92-7640captufbysh JOSE MARTIN MOOREFacility:H1 Procedures DateProcedureProcedure DetailPerforming ClinicianStart: 51-70-1598MBZN / NAIL BIOPSYNatalie A Felter PEOPLESOFT ADMINISTRATOR-VOICE STUDIES DIRECTOR Work Phone: Start: 41-56-5850ZC TOMOSYNTHESIS SCREENING BIRadha PEMBERTON Work Phone: Start: 37-52-0724DE PELVIS W/ TRANSVAGINALAmy Diomedes PEMBERTON Work Phone: Start: 95-09-3036EgsnudhwpbbTam Ramey PA Work Phone: Start: 09-10-2754PcnmwjaddntTkr Ramey PA Work Phone: Start: 67-57-7095PAK,APTIMA HPV,AGE GDLNRadha PEMBERTON Work Phone: Start: 60-18-8698Myjhbioivir observation [Identifier] in Cervix by Cyto Deni Woodward APRN-VOICE STUDIES DIRECTOR Work Phone: Start: 98-79-2441GTQA / NAIL BIOPSYNatalizeb Sanchezlady PEOPLESOFT ADMINISTRATOR-VOICE STUDIES DIRECTOR Work Phone: Start: 07-24-6778Qeflxzeadnf observation [Identifier] in Cervix by Cyto stainRadha PEMBERTON Work Phone: Start: 68-48-3096PvbvbmzmtcdOdhqodp Felter PEOPLESOFT ADMINISTRATOR-VOICE STUDIES DIRECTOR Work Phone: Start: 61-21-1060DepvocdhjviMzeebdw Felter PEOPLESOFT ADMINISTRATOR-VOICE STUDIES DIRECTOR Work Phone: H/O: surgeryHistory of nevus excisionNatdon Guthrie PEOPLESOFT ADMINISTRATOR-VOICE STUDIES DIRECTOR Work Phone: Plan of Treatment DateCare ActivityDetailAuthorStart: 97-22-8508Algjjgeag for malignant neoplasm of colonNOMS HealthcareStart: 60-23-2698Jhqguqiei for malignant neoplasm of colonNOMS HealthcareStart: 76-73-6594Irfoemvnj for malignant neoplasm of cervix [facility] SystemStart: 66-07-2473Iuhahkycp for malignant neoplasm of cervixNOMS HealthcareStart: 41-70-6686Bppsoktmi for malignant neoplasm of cervix Pap SmearNOMS HealthcareStart: 08-16-2026 End: 09-93-7078Gfaeler encounter ducllmqnc23/15/2026 1:05 PM EDT Office Visit [facility] [address] [place] [address] Rob Guthrie PEOPLESOFT ADMINISTRATOR-VOICE STUDIES DIRECTOR [address] [place] [address] NOMMarika [facility] DermatologyStart: 09-49-7576Cxndisspa for malignant neoplasm of breastMammogramNOMS Healthcare Start: 79-81-8643Sddij BMI ScreeningAdult BMI ScreeningProUniversity Hospitals Conneaut Medical Centerca [facility] Start: 18-33-8467Hpokabe ScreeningTobacco ScreeningProWadsworth-Rittman Hospital SystemStart: 11-28-2025 End: 31-37-5109Thpztfs encounter hxakuflox49/27/2026 1:00 PM EST Office Visit [facility] [address] [place] [address] Nadine Santiago MD [address] [place] [address] [facility] DermatologyStart: 10-12-2025 End: 36-76-6091Uevikcg encounter nkrsnjtfi44/11/2025 11:00 AM EST Office Visit [facility] [address] [place] [facility] [address] Nichole Waite NP [address] [facility], [place] [address] NOMMarika [place] FMStart: 10-05-2025 End: 33-01-9750Qfobbds encounter procedureNOMS BCP OBStart: 09-06-2025 End: 42-60-5115GTQ W Auto Differential panel - BloodCBC and differential Lab Routine Dizziness Expected: 09/06/2025 (Approximate), Expires: 09/06/2026[facility] Work Phone: Comment on above:Expected: 09/06/2025 (Approximate), Expires: 09/06/2026Start: 09-06-2025 End: 18-12-2183Buuytptqtfecx metabolic 2000 panel - Serum or PlasmaComprehensive metabolic panel Lab Routine Dizziness Expected: 09/06/2025 (Approximate), Expires: 09/06/2026NO[facility] HealthcareComment on above:Expected: 09/06/2025 (Approximate), Expires: 09/06/2026Start: 09-06-2025 End: 44-31-9222Yqplfaeac [Mass/volume] in Serum or PlasmaMagnesium Lab Routine Dizziness Expected: 09/06/2025 (Approximate), Expires: 09/06/2026[facility] Comment on above:Expected: 09/06/2025 (Approximate), Expires: 09/06/2026Start: 09-06-2025 End: 73-10-9370ZWE W/REFLEX TO FT4TSH W/REFLEX TO FT4 Lab Routine Dizziness Expected: 09/06/2025 (Approximate), Expires: 09/06/2026NO[facility] HealthcareComment on above:Expected: 09/06/2025 (Approximate), Expires: 09/06/2026Start: 07-06-2025 End: 72-29-9443Kctcmbw encounter procedureNOMS SWS DERMStart: 97-87-8998PJFJR-19 Vaccine ()COVID-19 Vaccine ()[facility] HealthcareStart: 91-79-0705Sgxxavuii vaccinationNOKY HealthcareStart: 06-28-2025 End: 14-62-4289SUY W Auto Differential panel - BloodCBC and differential Lab Routine Heart palpitations Chest tightness Expected: 06/28/2025 (Approximate), Expires: 06/28/2026[facility] Work Phone: Comment on above:Expected: 06/28/2025 (Approximate), Expires: 06/28/2026Start: 06-28-2025 End: 64-90-5709Ovdjfzcdqttiw metabolic 2000 panel - Serum or PlasmaComprehensive metabolic panel Lab Routine Heart palpitations Chest tightness Expected: 06/28/2025 (Approximate), Expires: 06/28/2026[facility] HealthcareComment on above: Expected: 06/28/2025 (Approximate), Expires: 06/28/2026Start: 06-28-2025 End: 97-68-4586TSK 12 leadECG 12 lead ECG Routine Heart palpitations Chest tightness Expected: 06/28/2025 (Approximate), Expires: 06/28/2026[facility] Comment on above:Expected: 06/28/2025 (Approximate), Expires: 06/28/2026Start: 06-28-2025 End: 77-59-3943Knqjjn monitor studyHolter monitor Imaging Routine Heart palpitations Chest tightness Expected: 06/28/2025 (Approximate), Expires: 06/28/2026[facility] HealthcareComment on above:Expected: 06/28/2025 (Approximate), Expires: 06/28/2026Start: 06-28-2025 End: 62-06-7185Vmabbyrdq [Mass/volume] in Serum or PlasmaMagnesium Lab Routine Heart palpitations Chest tightness Expected: 06/28/2025 (Approximate), Expires: 06/28/2026[facility] HealthcareComment on above:Expected: 06/28/2025 (Approximate), Expires: 06/28/2026Start: 06-28-2025 End: 48-78-3896Dxhengg encounter /27/2025 2:00 PM EDT Office Visit [facility] [address] [place] [address] James Perera NP [address] [place] [address] ArrivedAdventHealth Wesley ChapelComment on above:Arrived Start: 06-28-2025 End: 61-26-2992XIC W/REFLEX TO FT4TSH W/REFLEX TO FT4 Lab Routine Heart palpitations Chest tightness Acquired hypothyroidism Expected: 06/28/2025 (Approximate), Expires: 06/28/2026[facility] HealthcareComment on above:Expected: 06/28/2025 (Approximate), Expires: 06/28/2026Start: 06-28-2025 End: 51-24-5384ZB Chest 2 ViewsNOMS HealthcareComment on above:Expected: 06/28/2025, Expires: 06/28/2026Start: 00-06-8082Uzclsdbft vaccinationInfluenza Vaccine (#1)[facility] HealthcareComment on above:Postponed from 07/03/2024 (Patient Refused)Start: 12-16-2024 End: 42-12-9096Ulcmeodiq to same day surgery jnpsch7012/16/2024 9:30 AM EST - 12/16/2024 10:00 AM EST Surgery [facility] - Surgery [address] [place] [address] Carlos Whitfield MD [address] [place] [address] COLONOSCOPY DIAGNOSTIC / SCREENING [27086 (CPT )][facility] HospitalComment on above:COLONOSCOPY DIAGNOSTIC / SCREENING [38599 (CPT )]Start: 12-16-2024 End: 45-86-9295Eeblqzbzlfv flx dx w/collj spec when pfrmdCOLONOSCOPY DIAGNOSTIC / SCREENING History of colon polyps 12/16/2024 9:30 AM ESTFREMONT SURGERYStart: 10-65-7667Gruphudfrz hospital visit by jwvtoltmk19/14/2025 9:30 AM EST Hospital Encounter [facility] Surgery [address] [facility] [place] [address] Carlos Whitfield MD [address] [place] [address] [facility] HospitalStart: 12-08-2024 End: 86-15-2093mikwwypieq88/06/2025 3:00 PM EST Support Visit [facility] Admit [address] [place] [facility] [place] [address] [facility] AdmitStart: 72-04-0018Ziezclwds for malignant neoplasm of colonColonoscopyKettering Health Dayton SystemStart: 11-21-2024 End: 97-19-2554VVA W/REFLEX TO FT4TSH W/REFLEX TO FT4 Lab Routine Acquired hypothyroidism (CMS/HCC) Expected: 11/21/2024 (Approximate), Expires: 10/07/2025 [facility] Work Phone: Comment on above:Expected: 11/21/2024 (Approximate), Expires: 10/07/2025Start: 10-06-2024 End: 34-07-0703Hdoidliixucqv metabolic 2000 panel - Serum or PlasmaComprehensive metabolic panel Lab Routine Essential hypertension (CMS/HCC) Expected: 10/06/2024 (Approximate), Expires: 10/06/2025[facility] HealthcareComment on above: Expected: 10/06/2024 (Approximate), Expires: 10/06/2025Start: 10-06-2024 End: 97-93-6558Hfrhbthbdl A1c/Hemoglobin.total in BloodHemoglobin A1c Lab Routine Elevated fasting blood sugar Expected: 10/06/2024 (Approximate), Expires: 10/06/2025[facility] HealthcareComment on above:Expected: 10/06/2024 (Approximate), Expires: 10/06/2025Start: 10-06-2024 End: 42-95-6685Yeomi 1996 panel - Serum or PlasmaLipid panel Lab Routine Mixed hyperlipidemia (CMS/HCC) Expected: 10/06/2024 (Approximate), Expires:10/06/2025 [facility] Healthcare Work Phone: Comment on above:Expected: 10/06/2024 (Approximate), Expires: 10/06/2025Start: 10-06-2024 End: 92-81-3072LKG W/REFLEX TO FT4TSH W/REFLEX TO FT4 Lab Routine Heart palpitations Acquired hypothyroidism (CMS/HCC) Expected: 10/06/2024 (Approximate), Expires: 10/06/2025[facility] HealthcareComment on above:Expected: 10/06/2024 (Approximate), Expires: 10/06/2025Start: 10-06-2024 End: 87-18-7246OD Thyroid glandUS thyroid Imaging Routine Thyroid nodule ([facility]) Expected: 10/06/2024, Expires: 10/06/2025[facility] HealthcareComment on above:Expected: 10/06/2024, Expires: 10/06/2025Start: 09-22-2024 End: 65-11-7421QI Breast - bilateral ScreeningBilateral screening mammogram Imaging Routine Breast cancer screening by mammogram Expected: 09/22/2024 (Approximate), Expires: 11/22/2025[facility] HealthcareComment on above:Expected: 09/22/2024 (Approximate), Expires: 11/22/2025Start: 09-22-2024 End: 08-03-9693YJ for pregnancyUS PELVIS-TRANSVAG IF INDICATED Imaging Routine History of uterine fibroid Expected: 09/22/2024 (Approximate), Expires: 09/22/2025[facility] HealthcareComment on above:Expected: 09/22/2024 (Approximate), Expires: 09/22/2025Start: 09-22-2024 End: 25-17-3763Zjbyzxu encounter procedureNOMS BCP OBComment on above:Arrived Start: 13-70-7363WGPTX-19 Vaccine ()COVID-19 Vaccine ()[facility]Start: 02-94-0188Uxnsvjmpk vaccinationNOMS HealthcareStart: 06-30-2024 End: 68-13-9219Pbnobpg encounter pcihjghpa08/29/2024 1:20 PM EDT Office Visit [facility] [address] [place] [address] Rob Guthrie APRN-VOICE STUDIES DIRECTOR [address] [place] [address] ArrivedNOKY SWS DERMComment on above: ArrivedStart: 98-05-8719Wvmjsnbll for malignant neoplasm of breastMammogramNOMS HealthcareStart: 01-92-4904Cygfigoeoehqfy of varicella zoster vaccineZoster (Shingles) Vaccine (1 of 2)[facility] SystemStart: 89-29-9257Oyvhiudjg for malignant neoplasm of cervixPap SmearNOMS HealthcareStart: 42-33-6008SFxU,Tdap and Td Vaccines (1 - Tdap)DTaP,Tdap and Td Vaccines (1 - Tdap)[facility] SystemStart: 51-21-8960Gdzpxvzinb ScreeningDepression ScreeningKettering Health [facility] SystemStart: 45-43-1772Wtgqdxcak for malignant neoplasm of colonNOMS Healthcare End: 48-50-2875LoelzkcwflxLbijwuixzar GI Routine Encounter for colonoscopy due to history of colonic polyp 1 Occurrences starting 11/28/2024 until 11/28/2025 [facility] Work Phone: Comment on above:1 Occurrences starting 11/28/2024 until 11/28/2025Dermatopathology examDermatopathology exam Pathology and Cytology Timed Neoplasm of unspecified behavior of bone, soft tissue, and skin Release Upon Ordering for 1 Occurrences starting 06/30/2024[facility] Work Phone: comenaz on above:Release Upon Ordering for 1 Occurrences starting 06/30/2024ermatopathology examDermatopathology exam Pathology and Cytology Timed Neoplasm of unspecified behavior of bone, soft ti ssue, and skin Release Upon Ordering for 1 Occurrences starting 08/17/2025[facility] Work Phone: combzvh on above:Release Upon Ordering for 1 Occurrences starting 08/17/2025THIN PREP TIS PAP AND HR HPV DNATHIN PREP TIS PAP AND HR HPV DNA Pathology and Cytology Routine Well woman exam with routine gynecological exam Ordered: 09/22/2024[facility] Work Phone: compsyp on above:Ordered: 09/22/2024 Immunizations Immunization DateImmunizationNotesCare BtkfuitmIxjvephv81-28-5213iipidosqi, injectable, quadrivalent, preservative gianniPacookie Waite Work Phone: [facility] Work Phone: [phone] virus vaccine, unspecified formulationNatalie Cleveland PEOPLESOFT ADMINISTRATOR-VOICE STUDIES DIRECTOR Work Phone: [facility] Payers DatePayer CategoryPayerPolicy [id number] Member Subscriber Plan / Payer (Effective 2021-Present) Name: Wen Murillo Relation to Subscriber: Spouse Name: CORNELIA MURILLO Date ofBirth: (Home) Address: [address] [place] [address] [place] [address] Payer ID: Not on file Type: Not on file Address: [facility] [id number] [place] [id number] BCBS BCBS [id number] 2021- [phone] [address] [place] [id number] Health Rehabilitation [facility] - PPOANTHEM [id number] [id number] 2..1.358259.3.57[id number] 2..1.758274.3.57[id number] 2..1.710263.3.57[id number] 2..1.660620.3.57[id number] 2..1.735158.3.57[id number] 2..1.114793.3.57[id number] 2.16.840.1.579105.3.57[id number] 2.16.840.1.704115.3.57[id number] 2.16.840.1.587809.3.57[id number] 2.16.840.1.498124.3.57[id number] 2.16.840.1.677831.3.57[id number] 2.16.840.1.660378.3.57[id number] 2.16.840.1.191876.3.579.2.049681-01-4726Bmby-shg52584323077-15-1469Qwtsgih [id number] Social History DateTypeDetailFacilityStart: 04-20-2023 End: 23-90-7550Tiofobo smoking status NHISNever smoked tobaccoNOMS Healthcare Start: 04-20-2023 End: 85-83-7429Avjicxh use and exposureSmokeless tobacco non-userNOMS Healthcare Start: 09-17-2023 End: 58-09-6898Qvwqqluug beverage intakeLifetime non-drinker (finding)[facility] HealthcareStart: 06-30-2024 End: 44-97-3074Inghkdt of Social functionNOMS HealthcareStart: 06-30-2024 End: 82-90-0580Rbwelrc use panelNOMS HealthcareStart: 33-67-8120Lzeifne Comment Caffeine: 1-2 cups/day coffeeNOMS HealthcareStart: 92-44-1045Voa assigned at birthNot on fileNOMS HealthcareStart: 11-28-2024 End: 86-89-4947Kshsocmgg beverage intakeCurrent drinker of alcohol (finding) [facility] SystemStart: 93-41-4400Eiddyqyckr depression screening rlxujbqvpr1GdtFepzgv Health SystemStart: 37-46-0592Tvlfwlb Commentrabere esteban [facility] SystemStart: 10-94-3505NenXhoeyq (finding)[facility] SystemStart: 06-28-2025 End: 41-77-2623Xrcynezhx beverage intakeEx-drinker (finding)[facility] Clinical Notes 06-30-2024 to 09-06-2025 Note Date & VbjeOepaQjkpzrhz20-85-2424 History of Present illness Narrative* James Perera NP - 09/06/2025 2:30 PM EST Images from the original note were not included. Subjective ?Quick Links Last Note in Specialty Snapshot Edit RFV/CC Edit Screenings Current Meds Patient ID: Wen Murillo is a 54 y.o. female who presents for Dizziness. HPI History of Present Illness The patient presents for evaluation of dizziness. She experienced an episode of dizziness this morning, characterized by a sensation of the room spinning and a near-fall incident while preparing coffee. Despite not losing consciousness, she felt unstable and lightheaded throughout the day, necessitating periods of rest before resuming activities such as walking. She also reported feeling off-balance when bending over. She denies drinking much fluids the past couple days. She has not previously taken any medication for dizziness. She has not yet undergone a stress test. She has been under significant stress since 05/2025 due to her 's diagnosis and her sister's illness and subsequent from cancer. She is currently on levothyroxine and is undergoing physical therapy. She had back pain 2 weeks ago and has been on muscle relaxers. Coffee/Tea/Caffeine-containing Drinks: She drinks coffee. ?Quick Review Review Full History Edit History Meds - Current Medications[1] --- PMH - Atypical nevus Autoimmune thyroiditis Body mass index (BMI) 33.0-33.9, adult Hypertension Hypothyroid Nontoxic single thyroid nodule Obesity, unspecified Thyroid dysfunction Vitamin D deficiency, unspecified Objective ?Quick Links Add Vitals Timeline (Adult) Labs Imaging Results Review Trend Vitals ?? Avoid pulling in long tables of results. Comment on relevant results to support your medical decision making. BP 120/82 (Patient Position: Standing) Pulse 94 Temp 97.6 F Wt 227 lb 12.8 oz SpO2 97% BMI 33.16 kg/m Physical Exam Vitals and nursing note reviewed. Constitutional: Appearance: Normal appearance. HENT: Head: Normocephalic and atraumatic. Right Ear: Tympanic membrane normal. Left Ear: Tympanic membrane normal. Nose: Nose normal. Mouth/Throat: Mouth: Mucous membranes are moist. Eyes: Extraocular Movements: Extraocular movements intact. Right eye: Normal extraocular motion and no nystagmus. Left eye: Normal extraocular motion and no nystagmus. Pupils: Pupils are equal, round, and reactive to light. Cardiovascular: Rate and Rhythm: Normal rate and regular rhythm. Heart sounds: Normal heart sounds. Pulmonary: Effort: Pulmonary effort is normal. No respiratory distress. Breath sounds: Normal breath sounds. No stridor. No wheezing, rhonchi or rales. Musculoskeletal: Right lower leg: No edema. Left lower leg: No edema. Skin: General: Skin is warm and dry. Neurological: General: No focal deficit present. Mental Status: She is alert and oriented to person, place, and time. GCS: GCS eye subscore is 4. GCS verbal subscore is 5. GCS motor subscore is 6. Sensory: Sensation is intact. Motor: Motor function is intact. No weakness. Coordination: Coordination is intact. Gait: Gait is intact. Psychiatric: Mood and Affect: Mood normal. Behavior: Behavior normal. Physical Exam Neurological: Cranial nerves II-XII intact, no focal deficits. Strength 5/5 in upper and lower extremities. No nystagmus observed. Respiratory: Clear to auscultation, no wheezing, rales or rhonchi Cardiovascular: Regular rate and rhythm, no murmurs, rubs, or gallops Other: Orthostatic blood pressure readings were 122/80, 118/80, and 120/82. Pulse rate increased byabout 20 beats. ?Quick Links Full Problem List Cardiology Chronic Pain GI Hypertension Thyroid Assessment & Plan Dizziness Orders: CBC and differential; Future Comprehensive metabolic panel; Future Magnesium; Future TSH W/REFLEX TO FT4; Future meclizine (Antivert) 25 MG tablet; Take 1 tablet (25 mg) by mouth 3 (three) times a day as needed for dizziness for up to 10 days Other orders Follow Up In Family Medicine; Future Assessment & Plan 1. Dizziness: - The dizziness could be attributed to dehydration or an imbalance in the inner ear crystals. - Orthostatic blood pressure readings remained consistent, with a pulse rate increase of approximately 20 beats, suggesting a potential for mild dehydration. - She is advised to augment her fluid intake and incorporate electrolytes into her daily regimen over the next few days. Blood work will be ordered to assess kidney function, liver function, electrolytes, glucose, blood counts, and magnesium levels. Thyroid levels will also be checked. - A prescription for meclizine will be provided to manage the dizziness and vertigo, with a cautionary note about its potential to induce drowsiness. If there is no improvement in her condition by next week, a referral to physical therapy may be made. Follow-up: The patient will follow up in 1 week. [1] atorvastatin (Lipitor) 20 MG tablet cyclobenzaprine (Flexeril) 10 MG tablet fluocinonide (Lidex) 0.05 % ointment levothyroxine (Synthroid, Levoxyl) 112 MCG tablet lisinopril 10 MG tablet Multiple Vitamin (Multi Vitamin) tablet triamcinolone (Kenalog) 0.025 % cream meclizine (Antivert) 25 MG tablet documented in this encounterSaint John's HospitalFbnnvxfbxd37-74-2294 History of Present illness Narrative* Rob Guthrie APRN-VOICE STUDIES DIRECTOR - 08/17/2025 1:25 PM EDT Images from the original note were not included. Skin Check Location: Patient requests a full body skin examination Dermatologic history: history of atypical mole(s) Last visit: 06/30/2024 Established patient Lesions: Location: left cheek near ear Duration: years Quality: bleeding Modifying factors: none Associated symptoms: scabs over and non-healing Treatments: neosporin Rash Location: hands Duration: years Severity: mild, moderate Quality: itchy, fang Modifying Factors: worst in the winter months Associated symptoms: dry skin Treatments tried: triamcinolone 1-2 as needed x years Current treatments: lotion All pertinent medical history, medications, and allergies were reviewed. General Exam: alert, oriented to person, place, and time, normal affect, well appearing Unaccompanied Areas not examined despite medical recommendation: Scalp, Examined Right leg Examined Head, Face Examined Left leg Examined Neck Examined Right foot Examined Chest Examined Left foot Examined Back Examined Buttocks Examined Patient kept underwear on Abdomen Examined Digits,nails: Examined Right arm Examined Left arm Examined Lymphatics: Not examined Hands Examined Skin Exam 1. MELANOCYTIC NEVUS OF TRUNK Torso - Posterior (Back) Scattered benign appearing, regular brown to light brown melanocytic papules and macules with similar morphology Counseled regarding these benign growths. Rarely, a nevus can develop into malignant melanoma, so any changing nevi should be promptly re-evaluated. 2. MELANOCYTIC NEVUS OF RIGHT LOWER EXTREMITY Right Leg Scattered benign appearing, regular brown to light brown melanocytic papules and macules with similar morphology. No evidence of recurrence of mildly dysplastic nevus on right posterior thigh Counseled regarding these benign growths. Rarely, a nevus can develop into malignant melanoma, so any changing nevi should be promptly re-evaluated. 3. MELANOCYTIC NEVUS OF LEFT LOWER EXTREMITY Left Leg Scattered benign appearing, regular brown to light brown melanocytic papules and macules with similar morphology Counseled regarding these benign growths. Rarely, a nevus can develop into malignant melanoma, so any changing nevi should be promptly re-evaluated. 4. LENTIGINES Head - Anterior (Face) Scattered amaya macules in sun-exposed areas. The patient was informed that lentigines are benign pigmented lesions that occur on sun-exposed andsun-damaged skin. No treatment is necessary. Recommended regular use of broad spectrum sunscreen SPF 30 or higher 5. ANGIOMA OF SKIN (3) Head - Anterior (Face), Scalp, Torso - Posterior (Back) Scattered kay-red papule(s). The patient was informed that angiomas are benign growths on the the skin. No treatment is necessary. 6. SEBORRHEIC KERATOSIS (2) Generalized, Torso - Posterior (Back) Stuck on verrucous, amaya-brown papules and plaques. Patient was counseled regarding these benign growths. Removal is normally not necessary, but they may be removed if they are symptomatic or for cosmetic reasons. 7. DERMATOFIBROMA Right Lower Leg - Anterior Firm brown papule that dimples with lateral pressure. Discussed that these are benign scars on the skin. If lesion is changing/symptomatic, return to office to have lesion re-evaluated 8. OTHER ATOPIC DERMATITIS Left 2nd Finger Tip, Left 3rd Finger Tip, Left 4th Finger Tip, Left 5th Finger Tip, Left [place], Left Thumb Tip, Right 2nd Finger Tip, Right 3rd Finger Tip, Right 4th Finger Tip, Right 5th Finger Tip, Right Mid Palm, Right Thumb Tip Scaly erythematous plaques + dyspigmentation, lichenification, excoriations. Flaring today Discussed that atopic dermatitis is a chronic condition that can be controlled but not cured. Startflucinonide ointment apply topically to hands bid prn when flared, hold if smooth/asymptomatic. Encouraged daily moisturizing and gentle cleansers to prevent flares. Notify office if flaring despite treatment. This Visit - fluocinonide (Lidex) 0.05 % ointment - Apply to affected areas on hands, up to twice a day when flared, do not use one the face, groin, or underarms, 30 day supply 9. SEBACEOUS HYPERPLASIA Head - Anterior (Face) Small yellow papules with a central dell. Reassure, benign. Discussed these can be removed for a cosmetic fee with the hyfrecator if desired. 10. SKIN TAG Neck - Anterior Fleshy, skin-colored sessile and pedunculated papules. The patient was informed that skin tags are benign growths usually found around the neck or in the axillae. No treatment is necessary, but at times they can get caught on jewelry or clothing or become inflamed. Skin tags can be removed with scissors or liquid nitrogen. 11. HISTORY OF NEVUS EXCISION left shoulder, right thigh, and right buttocks No evidence of recurrence in scar from atypical mole excision. Notify office for any recurrence at surgery site or for any new or changing lesions. 12. NEOPLASM OF UNSPECIFIED BEHAVIOR OF BONE, SOFT TISSUE, AND SKIN Left Zygomatic Area Crusted papule - Lesion biopsy Type of biopsy: tangential Informed consent: discussed and consent obtained Informed consent comment: The risks and benefits of the biopsy were discussed. Risks include but are not limited to bleeding, infection, scarring, pain, and nerve damage. An opportunity to ask questions prior to the procedure was permitted and all questions were answered. Patient was prepped and draped in usual sterile fashion: area cleansed with alcohol. Anesthesia: the lesion was anesthetized in a standard fashion Anesthetic: 1% lidocaine w/ epinephrine 1-100,000 buffered w/ 8.4% NaHCO3 Instrument used: DermaBlade Hemostasis achieved with: electrodesiccation Outcome: patient tolerated procedure well Outcome comment: The specimen was placed in a prelabeled formalin container to be sent for pathology Post-procedure details: sterile dressing applied and wound care instructions given Post-procedure details comment: Emphasized need to contact clinic for any signs of infection, uncontrollable bleeding, or complications. Dressing type: bandage Additional details: Photo taken Amount of lidocaine used: 1.0 cc Specimen A - Dermatopathology exam Differential Diagnosis: ISK vs BCC Check Margins: No Size of lesion: 0.7 x 0.6 cm (D49.2) Neoplasm of unspecified behavior of bone, soft tissue, and skin Plan: Lesion biopsy Shave biopsy today, see procedure note. Patient will be notified of results. Follow up pending biopsy results. Next Visit: pending biopsy results, 1 year skin exam documented in this encounterSaint John's [id number] History of Present illness Narrative* James Perera NP - 06/28/2025 2:00 PM EDTAssociated Problem(s): Acquired hypothyroidism Orders: TSH W/REFLEX TO FT4; Future * James Perera NP - 06/28/2025 2:00 PM EDT Images from the original note were not included. Subjective ?Quick Links Last Note in Specialty Snapshot Edit RFV/CC Edit Screenings Current Meds Patient ID: Wen Murillo is a 54 y.o. female who presents for Heart Problem. HPI History of Present Illness The patient presents for chest pain, palpitations, hypothyroidism, and hypertension. She reports experiencing palpitations, particularly after physical activity such as walking, with her heart rate reaching up to 106 beats per minute. These palpitations have been ongoing for several months. Additionally, she describes a cramping sensation in her chest, which she first noticed when she was 15 or 16 years old. At that time, she was diagnosed with mitral valve prolapse but did not seek further cardiology follow-up as she aged. The chest cramping/tightness sensation is often triggered by walking, but can also occur spontaneously while at rest. She describes the sensation as a fluttering feeling. She has been experiencing this chest cramping/tightness since 10/2024. She reports no shortness of breath, leg swelling, nausea, vomiting, or radiating pain. She also does not feel diaphoretic, clammy, or sweaty during these episodes. However, she does report occasionaldizziness, which she attributes to menopause, but does not believe it is related to her chest tightness or increased heart rate. She has noticed an increase in her heart rate during physical activityand also when she experiences the fluttering sensation. She is currently going through menopause and believes this may be contributing to her symptoms. She is currently on levothyroxine 112 mcg for her thyroid condition and takes lisinopril for blood pressure management but does not monitor her blood pressure at home. Hobbies: Walking her dog FAMILY HISTORY She has sisters who have atrial fibrillation. ?Quick Review Review Full History Meds - atorvastatin (Lipitor) 20 MG tablet ergocalciferol (Vitamin D-2) 1.25 MG ([address] UT) capsule levothyroxine (Synthroid, Levoxyl) 112 MCG tablet lisinopril 10 MG tablet Multiple Vitamin (Multi Vitamin) tablet triamcinolone (Kenalog) 0.025 % cream --- PMH - Atypical nevus Autoimmune thyroiditis Body mass index (BMI) 33.0-33.9, adult Hypertension Hypothyroid Nontoxic single thyroid nodule Obesity, unspecified Thyroid dysfunction Vitamin D deficiency, unspecified Objective ?Quick Links Add Vitals Timeline (Adult) Labs Imaging Results Review Trend Vitals ?? Avoid pulling in long tables of results. Comment on relevant results to support your medical decision making. BP 138/84 Pulse 86 Temp 97.2 F Wt 225 lb SpO2 97% BMI 32.75 kg/m Physical Exam Vitals and nursing note reviewed. Constitutional: Appearance: Normal appearance. HENT: Head: Normocephalic and atraumatic. Nose: Nose normal. Mouth/Throat: Mouth: Mucous membranes are moist. Cardiovascular: Rate and Rhythm: Normal rate and regular rhythm. Pulses: Normal pulses. Heart sounds: Normal heart sounds. No murmur heard. Pulmonary: Effort: Pulmonary effort is normal. No respiratory distress. Breath sounds: Normal breath sounds. No stridor. No wheezing, rhonchi or rales. Abdominal: General: Bowel sounds are normal. There is no distension. Palpations: Abdomen is soft. There is no mass. Tenderness: There is no abdominal tenderness. Hernia: No hernia is present. Skin: General: Skin is warm and dry. Neurological: General: No focal deficit present. Mental Status: She is alert and oriented to person, place, and time. Psychiatric: Mood and Affect: Mood normal. Behavior: Behavior normal. Physical Exam Respiratory: Clear to auscultation, no wheezing, rales or rhonchi Cardiovascular: Regular rate and rhythm, no murmurs, rubs, or gallops Extremities: No leg swelling ?Quick Links Full Problem List Cardiology Chronic Pain GI Hypertension Thyroid Assessment & Plan Heart palpitations Orders: CBC and differential; Future Comprehensive metabolic panel; Future TSH W/REFLEX TO FT4; Future XR chest 2 views; Future ECG 12 lead; Future Holter monitor; Future Magnesium; Future Chest tightness Orders: CBC and differential; Future Comprehensive metabolic panel; Future TSH W/REFLEX TO FT4; Future XR chest 2 views; Future ECG 12 lead; Future Holter monitor; Future Magnesium; Future Acquired hypothyroidism Orders: TSH W/REFLEX TO FT4; Future Assessment & Plan 1. Chest pain: - The patient reports a cramping/tightness sensation in her chest, sometimes occurring during walksand other times randomly. She also experiences a fluttering sensation in her chest. - Physical exam findings indicate her heart sounds are regular, and there is no leg swelling or shortness of breath. - A Holter monitor and EKG will be ordered to further investigate her symptoms. A chest x-ray will also be conducted to rule out pneumonia or other potential causes of her symptoms. Blood work will be ordered to check her thyroid levels, CBC, CMP, and magnesium levels. - If all tests return normal results, a stress test will be considered. 2. Palpitations: - The patient reports experiencing palpitations for a few months, sometimes feeling like a fluttering sensation. - A Holter monitor and EKG will be ordered to monitor her heart rhythm over a 48-hour period. Bloodwork will be ordered to check her thyroid levels, CBC, CMP, and magnesium levels. - If all tests return normal results, a stress test will be considered. 3. Hypothyroidism: - The patient's last thyroid level was elevated, indicating an underactive thyroid. - Her thyroid levels will be checked again today to ensure the current dosage is effective. - The patient is currently taking levothyroxine 112 mcg. If the thyroid levels are still abnormal, an adjustment in her medication dosage may be necessary. 4. Hypertension: - The patient's blood pressure today is 138/84, which is slightly elevated but within the normal range. - The patient is currently taking lisinopril for blood pressure management. She is advised to continue her current medication and monitor her blood pressure regularly. documented in this encounterSaint John's [id number] History of Present illness Narrative* Liliam Woodward, GODFREY-VOICE STUDIES DIRECTOR - 11/28/2024 9:00 AM EST Chief Complaint: History of colon polyps History of Present Illness Wen Murillo is a 54 y.o. female who presents to the office for surveillance colonoscopy. In 2020 she had a several polyps removed on colonoscopy 1 of which was an adenoma with high-grade dysplasia in the sigmoid colon. She had a follow up colonoscopy 6 months later in which 1 tubular adenoma and 1 hyperplastic polyp were removed. It was recommended she follow-up in 3 years. She denies any concerns or changes in her bowel habits. Review of Systems Constitutional: Negative for fever and unexpected weight change. HENT: Negative for trouble swallowing. Respiratory: Negative for shortness of breath. Cardiovascular: Negative for chest pain. Gastrointestinal: Negative for nausea, vomiting, abdominal pain, diarrhea, constipation and blood in stool. Genitourinary: Negative for dysuria and difficulty urinating. Musculoskeletal: Negative for gait problem. Skin: Negative for rash and wound. Neurological: Negative for dizziness, weakness and light-headedness. Hematological: Does not bruise/bleed easily. Psychiatric/Behavioral: Negative for confusion. Past Medical History: Diagnosis Date Hypertension Hypothyroidism Increased pressure in the eye Mitral prolapse as a child Obesity Pneumonia Occurred during PONV (postoperative nausea and vomiting) Past Surgical History: Procedure Laterality Date SECTION 1988,1989,2000 COLONOSCOPY N/A 11/25/2021 Performed by Jose Alex DO at [facility] COLONOSCOPY N/A 03/25/2021 Performed by Jose Alex DO at [facility] TUBAL LIGATION TYMPANOSTOMY TUBE PLACEMENT Allergies Allergen Reactions Latex Rash Current Outpatient Medications: levothyroxine (SYNTHROID, LEVOTHROID) 25 MCG tablet, Take 1 tablet (25 mcg total) by mouth daily., Disp: 30 tablet, Rfl: 1 lisinopriL (PRINIVIL,ZESTRIL) 10 mg tablet, Take 1 tablet (10 mg total) by mouth in the morning., Disp: , Rfl: MULTIVITAMIN ORAL, Take by mouth., Disp: , Rfl: albuterol sulfate (PROAIR RESPICLICK) 90 mcg/actuation aerosol powdr breath activated, Inhale 180 mcg every 4 (four) hours. 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 Tobacco Use Smoking status: Never Smokeless tobacco: Never Vaping Use Vaping status: Never Used Substance and Sexual Activity Alcohol use: Yes Comment: rare, socially Drug use: No Sexual activity: Defer Other Topics Concern Not on file Social History Narrative Household: Herself her spouse her daughter Social Drivers of Health Financial Resource Strain: Not on file Food Insecurity: Not on file Transportation Needs: Not on file Physical Activity: Not on file Stress: Not on file Social Connections: Not on file Interpersonal Safety: Not on file Housing Instability: Not on file Family History Problem Relation Age of Onset Lung cancer Mother Breast cancer Mother Hypertension Father Diabetes Father Pancreatic cancer Father Objective Physical Exam Constitutional: General: She is not in acute distress. Appearance: Normal appearance. She is not ill-appearing. HENT: Head: Normocephalic and atraumatic. Mouth/Throat: Mouth: Mucous membranes are moist. Eyes: Pupils: Pupils are equal, round, and reactive to light. Cardiovascular: Rate and Rhythm: Normal rate. Pulmonary: Effort: Pulmonary effort is normal. No respiratory distress. Abdominal: General: There is no distension. Musculoskeletal: General: Normal range of motion. Skin: General: Skin is warm and dry. Neurological: Mental Status: She is alert and oriented to person, place, and time. Mental status is at baseline. Vital Signs: Blood pressure 141/77, pulse 80, weight 98.6 kg (217 lb 6.4 oz), not currently . Respiratory Source: No data recorded Admission Weight: Weight: 98.6 kg (217 lb 6.4 oz) Labs Lab Results Component Value Date WBC 8.2 04/23/2017 HGB 14.1 04/23/2017 HCT 41.8 04/23/2017 MCV 87 04/23/2017 PLT 227 04/23/2017 Lab Results Component Value Date GLU 86 05/30/2019 CALCIUM 9.4 05/30/2019 K 4.1 05/30/2019 CO2 26 05/30/2019 CL 104 05/30/2019 BUN 12 05/30/2019 CREATININE 0.90 05/30/2019 No results found for: AMYLASE No results found for: LIPASE No results found for: ALT , AST , GGT , ALKPHOS , LABBILI Lab Results Component Value Date INR 0.9 03/05/2017 PROTIME 10.3 03/05/2017 Assessment Wen Murillo is a 54 y.o.female who presents to the office for surveillance colonoscopy dueto history of colon polyps. Plan Colonoscopy with possible biopsy and/or polypectomy. Risks, benefits, and alternatives discussed with patient. Educated on bowel evacuation preparation. Patient verbalizes understanding and wishes toproceed. Evaluation included: Preparing to see the patient (e.g., review of tests) Obtaining and/or reviewing separately obtained history Performing a medically appropriate examination and/or evaluation Counseling and educating the patient/family/caregiver Referring and communicating with other health personal caregiver Encounter for colonoscopy due to history of colonic polyp [Z12.11, Z86.0100] STEPHAN NOGUEIRA [facility] [place] This note was created with the assistance of a speech recognition program. While intending to generate a timely document that accurately reflects the content of the visit, no guarantee can be provided that every grammatical or spelling mistake has been or will be identified or corrected. Thank you for your understanding. STEPHAN Nogueira 11/28/24 0928 documented in this [facility]St[facility] History of Present illness Narrative* Nichole Waite, MAX - 10/06/2024 11:30 AM EST Images from the original note were not included. Wen Murillo is a 53 y.o. female presents with chief complaint of Annual Exam HPI: HPI Patient presents today for annual wellness exam. States she has been out of her thyroid medication and her bp meds. Need refills. History of Present Illness The patient presents for a wellness visit. She has been without her blood pressure and thyroid medications for several months due to missing her endocrinology appointment. She is under the care of Dr. Irvin for her thyroid condition and hadan ultrasound of her thyroid in 2019. She has scheduled appointments for a mammogram and a colonoscopy, the latter of which she undergoesevery three years. Her last colonoscopy was in 11/2019. She has also seen a plate shear operator. She experiences heart palpitations, described as a fluttering sensation, occurring once a week or afew times a month. These palpitations do not worsen with physical activity. She has gained some weight recently and notes that the palpitations were less frequent when she was at a lower weight. Additionally, she experiences dizziness, which she attributes to menopause. FAMILY HISTORY Her sisters have atrial fibrillation. SUBJECTIVE: MEDICATIONS: Current Outpatient Medications Medication Instructions levothyroxine (SYNTHROID, LEVOXYL) 112 mcg, Daily before breakfast lisinopril 10 mg, Oral, Daily Multiple Vitamin (Multi Vitamin) tablet Every 24 hours triamcinolone (Kenalog) 0.025 % cream 1 application , Every 24 hours I have reviewed and reconciled the history and medication list with the patient today. REVIEW OF SYMPTOMS: Review of Systems Constitutional: Negative. HENT: Negative. Respiratory: Negative for cough, shortness of breath and wheezing. Cardiovascular: Positive for palpitations. Negative for chest pain. Gastrointestinal: Negative for abdominal pain. Genitourinary: Negative. Musculoskeletal: Negative. Skin: Negative. Neurological: Negative. OBJECTIVE: Visit Vitals BP 142/84 Pulse 74 Ht 5' 9.5 Wt 211 lb 12.8 oz BMI 30.83 kg/m Smoking Status Never BSA 2.17 m Physical Exam Vitals and nursing note reviewed. Constitutional: Appearance: Normal appearance. HENT: Head: Normocephalic and atraumatic. Right Ear: Hearing and tympanic membrane normal. Left Ear: Hearing and tympanic membrane normal. Nose: Nose normal. Right Turbinates: Not enlarged. Left Turbinates: Not enlarged. Right Sinus: No maxillary sinus tenderness or frontal sinus tenderness. Left Sinus: No maxillary sinus tenderness or frontal sinus tenderness. Mouth/Throat: Lips: [place]. Mouth: Mucous membranes are moist. Pharynx: Oropharynx is clear. Uvula midline. Tonsils: No tonsillar exudate. Eyes: General: Lids are normal. Vision grossly intact. Gaze aligned appropriately. Extraocular Movements: Extraocular movements intact. Conjunctiva/sclera: Conjunctivae normal. Neck: Thyroid: No thyroid mass or thyromegaly. Vascular: No carotid bruit. Trachea: Trachea normal. Cardiovascular: Rate and Rhythm: Normal rate and regular rhythm. Pulses: Normal pulses. Heart sounds: Normal heart sounds. Pulmonary: Effort: Pulmonary effort is normal. Breath sounds: Normal breath sounds and air entry. Abdominal: General: Abdomen is flat. Bowel sounds are normal. Palpations: Abdomen is soft. Musculoskeletal: Cervical back: Full passive range of motion without pain, normal range of motion and neck supple. Lymphadenopathy: Cervical: No cervical adenopathy. Skin: General: Skin is warm. Capillary Refill: Capillary refill takes less than 2 seconds. Neurological: Mental Status: She is alert and oriented to person, place, and time. Sensory: Sensation is intact. Motor: Motor function is intact. Coordination: Coordination is intact. Psychiatric: Attention and Perception: Attention and perception normal. Mood and Affect: Mood and affect normal. Speech: Speech normal. Behavior: Behavior is cooperative. Thought Content: Thought content normal. ASSESSMENT AND PLAN: Assessment/Plan Diagnoses and all orders for this visit: Heart palpitations - TSH W/REFLEX TO FT4; Future Her palpitations are very infrequent; maybe once a week and it only lasts for about 15-30 seconds. She would like to hold off on cardiac testing, such as holter and EKG. Essential hypertension (CMS/HCC) - Comprehensive metabolic panel; Future - lisinopril 10 MG tablet; Take 1 tablet (10 mg) by mouth Daily Discussed current management plan. Goal BP less then 130/80. Discussed heart healthy diet, increasefruits and vegetables, limit salt intake. Encouraged increase physical exercise, try to be as active as possible at least 150 mins per week. Importance of weight management with a goal BMI less then 27 discussed. Discussed complications of uncontrolled blood pressure. Patient instructed to monitor BP's 1-2 times a week, keep a log, and bring to next visit. Barriers to care and medication compliance discussed. Patient voices understanding of meds. Mixed hyperlipidemia (CMS/HCC) - Lipid panel; Future Acquired hypothyroidism (CMS/HCC) - TSH W/REFLEX TO FT4; Future Encounter for wellness examination in adult Wellness performed at today. Height, weight, BMI, problem list, and immunizations records reviewed. Dental care discussed with patient. Encouraged annual vision screenings and semi-annual dental care. Encouraged healthy eating habits, limit or eliminate junk food and sources of excess calories. Encouraged regular periods of exercise, 150 minutes of exercise weekly or amount appropriate to current level of function. Discussed family/friend/social support and importance of maintaining emotional connections. Follow up annually and as needed. Screening for diabetes mellitus Thyroid nodule (CMS/HCC) - US thyroid; Future She did have a large thyroid nodule on US in 2019; but never had follow up imaging. Imaging orderedtoday. Class 1 obesity Check labs to r/o underlying cause. Reviewed BMI with patient today. Encouraged weight reduction. Discussed healthy eating habits. Limit caloric intake <1500kcal/day. Reviewed different diet options with patient including low calorie, reduced carbohydrate. Advised to investigate Weight Watchers as a possible diet plan. Recommended journaling food intake and exercise performance either using a simple paper/calendar system or downloading the My Fitness Plan application to track calorie consumption, food intake, exercise performance. Recommended starting with at least 150 minutes of exercise weekly and increase to a goal of 60 minutes per day. Discussed barriers to following treatment plan. Will consider medication options if lifestyle modifications fail. Elevated fasting blood sugar - Hemoglobin A1c; Future documented in this encounterSaint John's [id number] History of Present illness Narrative* NILAY Falcon - 09/22/2024 2:00 PM EST Reason for Appointment: Patient ID: Wen Murillo is a 53 y.o. female who presents for Well Women Visit Patient presents today for Annual Exam. MEDICATIONS Current Outpatient Medications Medication Instructions levothyroxine (SYNTHROID, LEVOXYL) 112 mcg, Oral, Daily before breakfast lisinopril 10 mg, Oral, Daily Multiple Vitamin (Multi Vitamin) tablet Every 24 hours triamcinolone (Kenalog) 0.025 % cream 1 application , Topical, Every 24 hours, PRN ALLERGIES Allergies Allergen Reactions Latex Rash Other Reaction(s): rash PROBLEMS Active Ambulatory Problems Diagnosis Date Noted Acquired hypothyroidism ([facility]) 05/31/2019 Calcaneal spur of right foot 02/14/2021 Elevated blood pressure reading 04/27/2019 Elevated fasting blood sugar 04/20/2023 History of atypical skin mole 04/20/2023 Essential hypertension ([facility]/HCC) 02/14/2021 Low vitamin B12 level 02/15/2021 Mixed hyperlipidemia ([facility]) 06/08/2019 Other chronic pain 02/17/2022 Class 1 obesity 02/14/2021 Plantar fascial fibromatosis 02/14/2021 Contracture, right ankle 10/17/2020 Primary localized osteoarthrosis of ankle and foot 10/17/2020 Reactive airway disease without complication ([facility]) 06/08/2019 Thyroid nodule ([facility]/HCC) 06/29/2019 Resolved Ambulatory Problems Diagnosis Date Noted No Resolved Ambulatory Problems Past Medical History: Diagnosis Date Atypical nevus Hypertension ([facility]/HCC) Thyroid dysfunction ([facility]) HISTORY PAST MEDICAL HISTORY SOCIAL HISTORY Past Medical History: Diagnosis Date Atypical nevus Hypertension ([facility]/HCC) Thyroid dysfunction ([facility]/HCC) Social History Tobacco Use Smoking status: Never Smokeless tobacco: Never Substance Use Topics Alcohol use: Never Comment: Caffeine: 1-2 cups/day coffee Drug use: Never FAMILY HISTORY Family History Problem Relation Name Age of Onset Breast cancer Mother Lung cancer Mother Pancreatic cancer Father Pancreatic cancer Brother Multiple myeloma Neg Hx SURGICAL HISTORY Past Surgical History: Procedure Laterality Date SECTION, LOW TRANSVERSE x3 COLONOSCOPY 04/2021 HM MAMMOGRAPHY 05/2021 PAP SMEAR 2018 or 2019 REVIEW OF SYSTEMS Review of Systems: Review of Systems Constitutional: Negative. HENT: Negative. Eyes: Negative. Respiratory: Negative. Cardiovascular: Negative. Gastrointestinal: Negative. Genitourinary: Negative. Musculoskeletal: Negative. Skin: Negative. Neurological: Negative. All other systems reviewed and are negative. Hematological: Negative. Endocrine: Negative. Allergic/Immunologic: Negative. OBJECTIVE Objective: Physical Exam Constitutional: Appearance: Normal appearance. She is well-developed. Genitourinary: Vulva normal. Right Adnexa: not tender and no mass present. Left Adnexa: not tender and no mass present. No cervical discharge. Breasts: Breasts are soft. Right: Normal. Left: Normal. HENT: Head: Normocephalic. Nose: Nose normal. Mouth/Throat: Mouth: Mucous membranes are moist. Cardiovascular: Rate and Rhythm: Normal rate and regular rhythm. Pulmonary: Effort: Pulmonary effort is normal. Breath sounds: Normal breath sounds. Abdominal: General: Bowel sounds are normal. There is no distension. Palpations: Abdomen is soft. Tenderness: There is no abdominal tenderness. There is no guarding or rebound. Musculoskeletal: General: No swelling. Normal range of motion. Cervical back: Normal range of motion. Right lower leg: No edema. Left lower leg: No edema. Neurological: General: No focal deficit present. Mental Status: She is alert and oriented to person, place, and time. Skin: General: Skin is warm and dry. Psychiatric: Mood and Affect: Mood normal. Behavior: Behavior normal. Vitals and nursing note reviewed. Exam conducted with a water use inspector present. Vitals: Estimated body mass index is 32.35 kg/m as calculated from the following: Height as of 04/20/23: 5' 7.25 . Weight as of this encounter: 208 lb 1.9 oz. BP: 110/74 No LMP recorded. ASSESSMENT & PLAN ICD-10-CM 1. Well woman exam with routine gynecological exam Z01.419 THIN PREP TIS PAP AND HR HPV DNA 2. Breast cancer screening by mammogram Z12.31 Bilateral screening mammogram Bilateral screening mammogram Annual Exam: Patient presents today for an annual exam. Patient states she is doing well and has no complaints. Pap was obtained without difficulty. Orders Placed This Encounter Procedures Bilateral screening mammogram Follow Up: Patient is to return in one year for annual unless needed otherwise. Documented by Delaney Terry LPN on behalf of: NILAY Falcon documented in this encounterSaint John's [id number] History of Present illness Narrative* Rob Guthrie APRN-VOICE STUDIES DIRECTOR - 06/30/2024 1:20 PM EDT Images from the original note were not included. Skin Check Location: Patient requests a full body skin examination Dermatologic history: history of atypical mole(s) Last visit: 1 year ago Established patient All pertinent medical history, medications, and allergies were reviewed. General Exam: alert , oriented to person, place, and time , normal affect, well appearingUnaccompanied Scalp, Examined , exam limited by hair Right leg Examined Head, Face Examined Left leg Examined Neck Examined Right foot Examined Chest Examined Left foot Examined Back Examined Buttocks Examined Abdomen Examined Digits,nails: Examined Right arm Examined Patient wearing nail sinhala, Denies dark streaks under finger nails, Denies darkstreaks on toenails Left arm Examined Lymphatics: Not examined Hands Examined 1. Lentigines Head - Anterior (Face) Scattered amaya macules in sun-exposed areas. The patient was informed that lentigines are benign pigmented lesions that occur on sun-exposed andsun-damaged skin. No treatment is necessary. Recommended regular use of broad spectrum sunscreen SPF 30 or higher 2. Seborrheic keratosis Torso - Posterior (Back) Stuck on verrucous, amaya-brown papules and plaques. Patient was counseled regarding these benign growths. Removal is normally not necessary, but they may be removed if they are symptomatic or for cosmetic reasons. 3. Melanocytic nevus of right lower extremity Right Leg Scattered benign appearing, regular brown to light brown melanocytic papules and macules with similar morphology. No evidence of recurrence of mildly dysplastic nevus on right posterior thigh Counseled regarding these benign growths. Rarely, a nevus can develop into malignant melanoma, so any changing nevi should be promptly re-evaluated. 4. Melanocytic nevus of left lower extremity Left Leg Scattered benign appearing, regular brown to light brown melanocytic papules and macules with similar morphology Counseled regarding these benign growths. Rarely, a nevus can develop into malignant melanoma, so any changing nevi should be promptly re-evaluated. 5. Melanocytic nevus of trunk Torso - Posterior (Back) Scattered benign appearing, regular brown to light brown melanocytic papules and macules with similar morphology Counseled regarding these benign growths. Rarely, a nevus can develop into malignant melanoma, so any changing nevi should be promptly re-evaluated. 6. Angioma of skin (3) Head - Anterior (Face), Scalp, Torso - Posterior (Back) Scattered kay-red papule(s). The patient was informed that angiomas are benign growths on the the skin. No treatment is necessary. 7. Dermatofibroma Right Lower Leg - Anterior Firm brown papule that dimples with lateral pressure. Discussed that these are benign scars on the skin. If lesion is changing/symptomatic, return to office to have lesion re-evaluated 8. Neoplasm of unspecified behavior of bone, soft tissue, and skin Right Buttock Irregularly pigmented papule Lesion biopsy Type of biopsy: tangential Informed consent: discussed and consent obtained Informed consent comment: The risks and benefits of the biopsy were discussed. Risks include but are not limited to bleeding, infection, scarring, pain, and nerve damage. An opportunity to ask questions prior to the procedure was permitted and all questions were answered. Patient was prepped and draped in usual sterile fashion: area cleansed with alcohol. Anesthesia: the lesion was anesthetized in a standard fashion Anesthetic: 1% lidocaine w/ epinephrine 1-100,000 buffered w/ 8.4% NaHCO3 Instrument used: DermaBlade Hemostasis achieved with: electrodesiccation Outcome: patient tolerated procedure well Outcome comment: The specimen was placed in a prelabeled formalin container to be sent for pathology Post-procedure details: sterile dressing applied and wound care instructions given Post-procedure details comment: Emphasized need to contact clinic for any signs of infection, uncontrollable bleeding, or complications. Dressing type: bandage Additional details: Photo taken yes Amount of lidocaine used: 0.5 cc Specimen A - Dermatopathology exam Differential Diagnosis: Dysplastic nevus vs other Check Margins: No Size of lesion: 0.3 x 0.4 cm Next Visit: 1 year [facility]* Diagnosis Well woman exam with routine gynecological exam Routine gynecological examination Breast cancer screening by mammogram History of uterine fibroid [facility] Diagnosis Heart palpitations- Primary Palpitations Essential hypertension (CMS/HCC) Unspecified essential hypertension Mixed hyperlipidemia (CMS/HCC) Mixed hyperlipidemia Acquired hypothyroidism (CMS/HCC) Unspecified hypothyroidism Encounter for wellness examination in adult Screening for diabetes mellitus Thyroid nodule (CMS/HCC) Nontoxic uninodular goiter Class 1 obesity Elevated fasting blood sugar Impaired fasting glucose [facility]* Diagnosis Acquired hypothyroidism (CMS/HCC)- Primary Unspecified hypothyroidism Mixed hyperlipidemia (CMS/HCC) Mixed hyperlipidemia [facility]* Diagnosis Essential hypertension (CMS/HCC) Unspecified essential hypertension [facility]* Diagnosis Lentigines Seborrheic keratosis Melanocytic nevus of right lower extremity Melanocytic nevus of left lower extremity Melanocytic nevus of trunk Benign neoplasm of skin of trunk, except scrotum Angioma of skin Dermatofibroma Benign neoplasm of skin, site unspecified Neoplasm of unspecified behavior of bone, soft tissue, and skin documented in this encounter [facility]* Diagnosis Encounter for colonoscopy due to history of colonic polyp- Primary History of colon polyps [facility] Diagnosis Heart palpitations- Primary Palpitations Chest tightness Other chest pain Acquired hypothyroidism Unspecified hypothyroidism documented in this encounter [facility]* Diagnosis Heart palpitations- Primary Palpitations Chest tightness Other chest pain Acquired hypothyroidism Unspecified hypothyroidism Melanocytic nevus of trunk- Primary Benign neoplasm of skin of trunk, except scrotum Melanocytic nevus of right lower extremity Melanocytic nevus of left lower extremity Lentigines Angioma of skin Seborrheic keratosis Dermatofibroma Benign neoplasm of skin, site unspecified Other atopic dermatitis Sebaceous hyperplasia Skin tag Unspecified hypertrophic and atrophic condition of skin History of nevus excision Neoplasm of unspecified behavior of bone, soft tissue, and skin documented in this encounter [facility]* Diagnosis Heart palpitations- Primary Palpitations Chest tightness Other chest pain Acquired hypothyroidism Unspecified hypothyroidism Dizziness- Primary Dizziness and giddiness documented in this encounter [facility] HealthcareInstructionsNot on filedocumented in this encounterProWadsworth-Rittman [facility] Summary Purpose Family History No Family History [...] section and content) DATE CREATED AUTHOR 08/04/2021 [facility] DATE CREATED AUTHOR AUTHOR'S ORGANIZ ATION 05/13/2022 [facility] DATE CREATED AUTHOR AUTHOR'S ORGANIZ ATION 06/02/2022 [facility] DATE CREATED AUTHOR AUTHOR'S ORGANIZ ATION 11/28/2024 [facility] DATE CREATED AUTHOR AUTHOR'S ORGANIZ ATION 07/01/2025 [facility] DATE CREATED AUTHOR AUTHOR'S ORGANIZ ATION 09/08/2025 [facility] EPIC Care Teams (unrecognized sec tion and content) Team MemberRelationshipSpecialtyStart DateEnd Date Rosanne Joyce MD [address] [facility] [place] [address] PCP - GeneralFamily Medicine04/20/23 Rob Guthrie, [employer] ADMINISTRATOR-VOICE STUDIES DIRECTOR [address] [place] [address] PCP - Valerie Commercial02/01/24 Lyndsay Church, MANAGER AGENCY [address] [place] [address] Nurse PractitionerFamily Medicine04/20/23Team MemberRelationshipSpecialtyStart DateEnd Date Rosanne Joyce MD [address] [facility] [place] [address] PCP - GeneralFamily Medicine04/20/23 Rob Guthrie, [employer] ADMINISTRATOR-VOICE STUDIES DIRECTOR [address] [place] [address] PCP - Valerie Commercial02/01/24 Lyndsay Church, MANAGER AGENCY [address] [place] [address] Nurse PractitionerFamily Medicine04/20/23Team MemberRelationshipSpecialtyStart DateEnd Date Rosanne Joyce MD [address] [place] [address] PCP - GeneralLoring Hospitally Medicine04/20/23 Rob Guthrie [employer] ADMINISTRATOR-VOICE STUDIES DIRECTOR [address] [place] [address] PCP - Samak Commercial02/01/24 Lyndsay Church, MANAGER AGENCY [address] [place] [address] Nurse PractitionerBoston [facility]atorium Medicine04/20/23Te MemberRelationshipSpecialtyStart DateEnd Date Rosanne Joyce MD [address] [place] [address] PCP - GeneralBoston Sanatorium Medicine04/20/23 Rob Guthrie, [employer] ADMINISTRATOR-VOICE STUDIES DIRECTOR [address] [place] [address] PCP - Samak Commercial02/01/24 Lyndsay Church, MANAGER AGENCY [address] [place] [address] Nurse PractitionerLoring Hospitally Medicine04/20/23Te MemberRelationshipSpecialtyStart DateEnd Date Rosanne Joyce MD [address] [place] [address] PCP - GeneralBoston [facility]atorium Medicine04/20/23 Rob Guthrie, [employer] ADMINISTRATOR-VOICE STUDIES DIRECTOR [address] [place] [address] PCP - Samak Commercial02/01/24 Lyndsay Church NP [address] [place] [facility] [address] Nurse PractitionerBoston Sanatorium Medicine04/20/23Te MemberRelationshipSpecialtyStart DateEnd Date Rosanne Joyce MD [address] [place] [facility] [address] PCP - GeneralBoston Sanatorium Medicine04/20/23 Rob Guthrie, [employer] ADMINISTRATOR-VOICE STUDIES DIRECTOR [address] [place] [address] PCP - Samak Commercial02/01/24 Lyndsay Church NP [address] [place] [facility] [address] Nurse PractitionerClinch Memorial Hospital04/20/23Te MemberRelationshipSpecialtyStart DateEnd Date Rosanne Joyce MD [address] [place] [facility] [address] PCP - GeneralBoston Sanatorium Medicine04/20/23 Rob Guthrie, [employer] ADMINISTRATOR-VOICE STUDIES DIRECTOR [address] [place] [address] PCP - Samak Commercial02/01/24 Lyndsay Church NP [address] [place] [address] Nurse PractitionerBoston [facility]atorium Medicine04/20/23Te MemberRelationshipSpecialtyStart DateEnd Date Frances Kay, [employer] ADMINISTRATOR-VOICE STUDIES DIRECTOR [address] [place] [facility] [place] [address] PCP - GeneralFamily Medicine02/25/21Team MemberRelationshipSpecialtyStart DateEnd Date Rosanne Joyce MD [address] [place] [address] PCP - GeneralFamily Medicine04/20/23 Rob Guthrie APRN-VOICE STUDIES DIRECTOR [address] [place] [address] PCP - Samak Commercial02/01/24 Lyndsay Church, MANAGER AGENCY [address] [place] [address] Nurse Practitionermily Medicine04/20/23Team MemberRelationshipSpecialtyStart DateEnd Date Rosanne Joyce MD [address] [place] [address] PCP - GeneralFamily Medicine04/20/23 Rob Guthrie APRN-VOICE STUDIES DIRECTOR [address] [place] [address] PCP - Samak Commercial02/01/24 Lyndsay Church, MANAGER AGENCY [address] [place] [address] Nurse Practitionermily Medicine04/20/23Team MemberRelationshipSpecialtyStart DateEnd Date Rosanne Joyce MD [address] [place] [address] PCP - GeneralFamily Medicine04/20/23 Rob Guthrie APRN-VOICE STUDIES DIRECTOR [address] [place] [address] PCP - Samak Commercial02/01/24 Lyndsay Church NP [address] [facility] [place] [address] Nurse PractitionerBoston [facility]atorium Medicine04/20/23Te MemberRelationshipSpecialtyStart DateEnd Date Rosanne Joyce MD [address] [place] [address] PCP - GeneralBoston [facility]atorium Medicine04/20/23 James Preera NP [address] [facility] [place] [address] PCP - Valerie Jzdhtcnnzq33/1/25 Lyndsay Almodovar NP [address] [place] [address] Nurse PractitionerClinch Memorial Hospital04/20/23Te MemberRelationshipSpecialtyStart DateEnd Date Rosanne Joyce MD [address] [place] [address] PCP - GeneralFami Medicine04/20/23 James Perera NP [address] [facility] [place] [address] PCP - Valerie Dxwmtgpkqn92/1/25 Lyndsay Almodovar NP [address] [place] [address] Nurse PractitionerBoston [facility]atorium Medicine04/20/23 Reason for Visit (unrecogniz ed section and content) ReasonCommentsWell Women VisitReasonCommentsAnnual ExamReasonCommentsSkin Check ReasonCommentsColon Cancer Screening3 year recallReasonCommentsHeart Problem ReasonCommentsSkin CheckSuspicious Skin LesionRashReasonCommentsDizziness FOR RECORDS PERTAINING TO PATIENTS WHO ARE [...] BE BASED ON THE PRIMARY CLINICAL RECORDS. [facility] [employer] [facility]. provides no warranty or guarantee of the accuracy or completeness of information in this document.
[2025-10-10 08:09] LABS: Age Gdln ACOG Testing Note (.); IGP, Aptima HPV, rfx 16/18,45 Note (.)
== END 2025-10-05 19:05 | disposition home or self-care (01) ==
LOC: LAB 19:04
PROVIDERS: Visit Provider Physician Assistant
DX: Z01.419 Encounter for gynecological examination (general) (routine) without abnormal findings (principal)
CPT/HCPCS: 87624; 88175